=== PATIENT | male | born 1955 | race Caucasian/White ===

== ENCOUNTER 2018-01-21 05:52 | Inpatient (IN) ==
[2018-01-24 11:40] VITALS: BP 122/68
== END 2018-01-24 14:43 | disposition home or self-care (01) | DRG 707 ==
LOC: N.5E 05:52 → N.OR 05:52 → N.SDSINP 05:54 → N.5E 13:16
PROVIDERS: ADMIT Urology; ATTEND Urology

== ENCOUNTER 2018-02-04 20:25 | Inpatient (IN) ==
[2018-02-04] MEDS ORDERED: METOCLOPRAMIDE 10 MG/2 ML VIAL IV STA (23:04)
[2018-02-04] MEDS ORDERED: ONDANSETRON 4 MG/2 ML VIAL IV STA (23:04)
[2018-02-04] MEDS ORDERED: metroNIDAZOLE INJ 500 MG in PREMIX 1 EACH IV STA (23:04)
[2018-02-04] MEDS ORDERED: SODIUM CHLORIDE 0.9% 1,000 ML IV STA (23:04)
[2018-02-04] MEDS ORDERED: cefTRIAXone 1,000 MG in SODIUM CHLORIDE 0.9% 100 ML IV STA (23:04)
[2018-02-04] MEDS ORDERED: MEPERIDINE 25 MG/1 ML VIAL IV STA (23:27)
[2018-02-04 23:33] LABS: Basophils % 0.1 % (0.0-0.8); Hematocrit 32.4 VOL% (42.0-52.0); Hemoglobin 11.3 GM/DL (14.0-18.0); Immature Granulocytes % 1.4 %; Lymphocytes # 0.6 10*3/uL (1.4-4.0); Lymphocytes % 4.1 % (21.2-54.2); Mean Corpuscular HGB Conc 34.9 GM/DL (32-36); Mean Corpuscular Hemoglobin 31 PG (27-34); Mean Platelet Volume 9.4 FL (9.6-12.0); Monocytes # 1.5 10*3/uL (0.11-0.8); Monocytes % 10.3 % (1.7-12.7); Neutrophils # 12.3 10*3/uL (1.4-7.4); Neutrophils % 84.1 % (38.7-73.9); Platelet Count 124 T/CUMM (130-400); Red Blood Count 3.68 MC/CUMM (3.8-5.5); Red Cell Distribution Width 14.4 % (9.3-17.3); White Blood Count 14.6 T/CUMM (4-12)
[2018-02-04 23:54] LABS: Alanine Aminotransferase 45 U/L (16-61); Albumin 3.1 G/DL (3.4-5.0); Alkaline Phosphatase 63 U/L (45-117); Amylase 20 U/L (25-115); Aspartate Amino Transferase 37 U/L (0-37); Blood Urea Nitrogen 15 MG/DL (7-18); Glucose 92 MG/DL (74-106); Osmolality,Calculated 266.4 MOS/KG (273-304); Potassium 4.1 MMOL/L (3.5-5.1); Sodium 133 MMOL/L (136-145); Total Protein 6.5 G/DL (6.4-8.3)
[2018-02-04 23:56] LABS: Lactic Acid 2.4 MMOL/L (0.4-2.0)
[2018-02-05 00:27] LABS: Band Neutrophils 3 % (0-10); Lymphocytes 20 % (20-55); Platelet Estimate Decreased; Segmented Neutrophils 71 % (50-85); Total Cells Counted 100
[2018-02-05] MEDS ORDERED: MEPERIDINE 25 MG/1 ML VIAL IV STA ×2 (01:20→03:12)
[2018-02-05 01:34] LABS: Apearance,Urine CLEAR (Clear); Bilirubin,Urine Negative (Negative); Blood, Urine Small mg/dL (Negative); Glucose,Urine (UA) Negative (Negative); Hyaline Casts,Urine 1 /LPF (0-3); Ketones,Urine Negative (Negative); Mucus,Urine Occasional /LPF (Occasional); Nitrite,Urine Negative (Negative); Protein,Urine 30 MG/DL; RBC,Urine 8 /HPF (0-4); Squamous Epithelial Cell,Urine Occasional /HPF (0-10); Urine Color Amber (Yellow); Urine Specific Gravity 1.021 (1.001-1.035); WBC,Urine 14 /HPF (0-6)
[2018-02-05] MEDS ORDERED: SODIUM CHLORIDE 0.9% 1,000 ML IV STA (03:12)
[2018-02-05] MEDS ORDERED: PROMETHAZINE 25 MG/1 ML VIAL IM PRN (03:21)
[2018-02-05] MEDS: VANCOMYCIN INJ 1,750 MG in SODIUM CHLORIDE 0.9% 500 ML IV SCH ×2 (05:34→17:29)
[2018-02-05] MEDS: DEXTROSE 5% NACL 0.45% 1,000 ML IV SCH ×3 (05:34→22:30)
[2018-02-05] MEDS: ONDANSETRON 4 MG/2 ML VIAL IV PRN ×3 (07:49→18:03)
[2018-02-05] MEDS: MEPERIDINE 25 MG/1 ML VIAL IV PRN ×3 (07:51→18:03)
[2018-02-05] MEDS: cefTRIAXone 1,000 MG in SYRINGE 1 EACH IV SCH (22:32)
[2018-02-06] MEDS: VANCOMYCIN INJ 1,750 MG in SODIUM CHLORIDE 0.9% 500 ML IV SCH ×2 (04:05→16:05)
[2018-02-06] MEDS: MEPERIDINE 25 MG/1 ML VIAL IV PRN (07:47)
[2018-02-06] MEDS: ONDANSETRON 4 MG/2 ML VIAL IV PRN ×2 (07:54→20:10)
[2018-02-06 09:06] LABS: Eosinophils % 0.7 % (0.00-10.9); Hemoglobin 9.6 GM/DL (14.0-18.0)
[2018-02-06 09:20] LABS: Basophils % 0.3 % (0.0-0.8); Hematocrit 28.2 VOL% (42.0-52.0); Immature Granulocytes % 1.3 %; Immature Granulocytes Absolute 0.08 #; Lymphocytes # 0.4 10*3/uL (1.4-4.0); Lymphocytes % 6.2 % (21.2-54.2); Mean Corpuscular Hemoglobin 30 PG (27-34); Mean Platelet Volume 9.7 FL (9.6-12.0); Monocytes # 0.7 10*3/uL (0.11-0.8); Monocytes % 12.2 % (1.7-12.7); Neutrophils # 4.7 10*3/uL (1.4-7.4); Neutrophils % 79.3 % (38.7-73.9); Red Blood Count 3.17 MC/CUMM (3.8-5.5); Red Cell Distribution Width 14.2 % (9.3-17.3)
[2018-02-06 09:21] LABS: Platelet Count 98 T/CUMM (130-400)
[2018-02-06 09:31] LABS: Calcium 7.5 MG/DL (8.5-10.1); Osmolality,Calculated 274.7 MOS/KG (273-304); Potassium 3.5 MMOL/L (3.5-5.1)
[2018-02-06 09:33] LABS: Band Neutrophils 3 % (0-10); Eosinophils 2 % (0-10); Lymphocytes 6 % (20-55); Segmented Neutrophils 82 % (50-85); Total Cells Counted 100
[2018-02-06 09:34] LABS: Hypochromasia 1+; Microcytosis 1+; Platelet Estimate Decreased
[2018-02-06] MEDS: ACETAMINOPHEN 325 MG TABLET PO PRN (14:40)
[2018-02-06] MEDS: DEXTROSE 5% NACL 0.45% 1,000 ML IV SCH (14:48)
[2018-02-06] MEDS: cefTRIAXone 1,000 MG in SYRINGE 1 EACH IV SCH (21:59)
[2018-02-07] MEDS: VANCOMYCIN INJ 1,750 MG in SODIUM CHLORIDE 0.9% 500 ML IV SCH (04:09)
[2018-02-07] MEDS: ONDANSETRON 4 MG/2 ML VIAL IV PRN (12:36)
[2018-02-07 13:18] LABS: Basophils % 0.4 % (0.0-0.8); Eosinophils % 1.1 % (0.00-10.9); Hematocrit 26.9 VOL% (42.0-52.0); Immature Granulocytes % 0.4 %; Immature Granulocytes Absolute 0.01 #; Lymphocytes # 0.3 10*3/uL (1.4-4.0); Lymphocytes % 10.4 % (21.2-54.2); Mean Corpuscular HGB Conc 33.5 GM/DL (32-36); Mean Corpuscular Hemoglobin 30 PG (27-34); Monocytes # 0.5 10*3/uL (0.11-0.8); Monocytes % 19.1 % (1.7-12.7); Neutrophils # 1.9 10*3/uL (1.4-7.4); Neutrophils % 68.6 % (38.7-73.9); Platelet Count 98 T/CUMM (130-400); Red Blood Count 2.99 MC/CUMM (3.8-5.5); White Blood Count 2.8 T/CUMM (4-12)
[2018-02-07 13:39] LABS: Calcium 7.9 MG/DL (8.5-10.1); Osmolality,Calculated 277.5 MOS/KG (273-304); Potassium 3.1 MMOL/L (3.5-5.1)
[2018-02-07 13:48] LABS: Eosinophils 1 % (0-10); Lymphocytes 14 % (20-55); Segmented Neutrophils 71 % (50-85); Total Cells Counted 100
[2018-02-07 13:49] LABS: Platelet Estimate Decreased
[2018-02-07] MEDS: cefTRIAXone 2,000 MG in SYRINGE 1 EACH IV SCH (13:54)
[2018-02-07] MEDS ORDERED: traZODone 50 MG TABLET PO PRN (16:26)
[2018-02-07] MEDS ORDERED: ONDANSETRON 4 MG/2 ML VIAL IV PRN (16:38)
[2018-02-07] MEDS: ZIPRASIDONE 20 MG CAPSULE PO SCH (17:39)
[2018-02-07] MEDS: DULoxetine 30 MG CAPSULE PO SCH (17:47)
[2018-02-07] MEDS: carBAMazepine 200 MG TABLET PO SCH (17:52)
[2018-02-08] MEDS: ACETAMINOPHEN 325 MG TABLET PO PRN ×2 (00:28→13:19)
[2018-02-08 06:10] LABS: Basophils % 0.4 % (0.0-0.8); Eosinophils # 0.1 10*3/uL (0.0-0.87); Eosinophils % 2.2 % (0.00-10.9); Hematocrit 27.6 VOL% (42.0-52.0); Hemoglobin 9.4 GM/DL (14.0-18.0); Immature Granulocytes % 0.7 %; Immature Granulocytes Absolute 0.02 #; Lymphocytes # 0.5 10*3/uL (1.4-4.0); Lymphocytes % 16.6 % (21.2-54.2); Mean Corpuscular HGB Conc 34.1 GM/DL (32-36); Mean Corpuscular Hemoglobin 30 PG (27-34); Mean Corpuscular Volume 87.9 FL (87-102); Mean Platelet Volume 9.7 FL (9.6-12.0); Monocytes # 0.7 10*3/uL (0.11-0.8); Neutrophils # 1.5 10*3/uL (1.4-7.4); Neutrophils % 56.1 % (38.7-73.9); Platelet Count 101 T/CUMM (130-400); Red Blood Count 3.14 MC/CUMM (3.8-5.5); Red Cell Distribution Width 13.9 % (9.3-17.3); White Blood Count 2.7 T/CUMM (4-12)
[2018-02-08 06:32] LABS: Band Neutrophils 16 % (0-10); Eosinophils 2 % (0-10); Lymphocytes 14 % (20-55); Segmented Neutrophils 52 % (50-85); Total Cells Counted 100
[2018-02-08 06:33] LABS: Polychromasia 1+
[2018-02-08 06:34] LABS: Anisocytosis 1+
[2018-02-08 06:37] LABS: Osmolality,Calculated 274.5 MOS/KG (273-304); Potassium 3.3 MMOL/L (3.5-5.1)
[2018-02-08] MEDS: carBAMazepine 200 MG TABLET PO SCH (08:01)
[2018-02-08] MEDS: ZIPRASIDONE 20 MG CAPSULE PO SCH (08:01)
[2018-02-08] MEDS: DULoxetine 30 MG CAPSULE PO SCH (08:01)
[2018-02-08] MEDS: cefTRIAXone 2,000 MG in SYRINGE 1 EACH IV SCH (12:44)
[2018-02-08] MEDS ORDERED: POTASSIUM CHLORIDE 20 MEQ TABLET PO ONE (14:11)
[2018-02-08 16:04] VITALS: BP 144/77
== END 2018-02-08 17:11 | disposition home or self-care (01) | DRG 862 ==
LOC: N.ED 20:25 → N.EDINP 02-05 03:21 → N.TELEN 02-05 04:20 → N.5E 02-05 15:02
PROVIDERS: ADMIT Urology; ATTEND Urology

== ENCOUNTER 2019-03-29 09:20 | Inpatient (IN) ==
[2019-03-29 10:34] LABS: Basophils # 0.1 10*3/uL (0.0-0.2); Basophils % 0.6 % (0.0-0.8); Eosinophils % 0.2 % (0.00-10.9); Hematocrit 33.5 VOL% (42.0-52.0); Hemoglobin 12.3 GM/DL (14.0-18.0); Immature Granulocytes % 1.4 %; Immature Granulocytes Absolute 0.11 #; Lymphocytes # 1.2 10*3/uL (1.4-4.0); Mean Corpuscular HGB Conc 36.7 GM/DL (32-36); Mean Platelet Volume 9.7 FL (9.6-12.0); Monocytes % 19.7 % (1.7-12.7); Neutrophils % 63.1 % (38.7-73.9); Platelet Count 156 T/CUMM (130-400); Red Blood Count 3.85 MC/CUMM (3.8-5.5); Red Cell Distribution Width 12.7 % (9.3-17.3); White Blood Count 8.1 T/CUMM (4-12)
[2019-03-29 10:42] LABS: Apearance,Urine CLEAR (Clear); Bilirubin,Urine Negative (Negative); Blood, Urine Negative (Negative); Glucose,Urine (UA) Negative (Negative); Ketones,Urine Negative (Negative); Mucus,Urine Occasional /LPF (Occasional); Nitrite,Urine Negative (Negative); Protein,Urine Negative; RBC,Urine 1 /HPF (0-4); Urine Color Amber (Yellow); Urine Specific Gravity 1.024 (1.001-1.035); WBC,Urine 3 /HPF (0-6)
[2019-03-29 10:46] LABS: Barbiturates Screen,Urine Negative (Negative); Benzodiazepines Screen,Urine Negative (Negative); Cannabinoid Screen,Urine Negative (Negative); Opiate Screen,Urine Negative (Negative); Phencyclidine Screen,Urine Negative (Negative)
[2019-03-29 10:51] LABS: INR 1.1; PT Patient Result 12.3 SECS (9.6-12.2); Partial Thromboplastin Time 26.6 SECS (20.8-36.0)
[2019-03-29 11:04] LABS: Atypical Lymphocytes Few; Eosinophils 1 % (0-10); Lymphocytes 6 % (20-55); Platelet Estimate Adequate; Polychromasia Slight; Segmented Neutrophils 76 % (50-85); Total Cells Counted 100
[2019-03-29 11:05] LABS: Prolactin 12.8 NG/ML
[2019-03-29 11:11] LABS: Albumin 2.9 G/DL (3.4-5.0); Bilirubin,Total 1.9 MG/DL (0.2-1.0); Calcium 8.2 MG/DL (8.5-10.1); Osmolality,Calculated 248.8 MOS/KG (273-304); Thyroid Stimulating Hormone 0.578 uIU/ml (0.358-3.74); Total Protein 6.1 G/DL (6.4-8.3)
[2019-03-29] MEDS ORDERED: DIPH/TET/ACEL PERT BOOSTER VACCINE 0.5 ML VIAL IM ONE (11:41)
[2019-03-29] MEDS ORDERED: oxyCODONE/ACETAMINOPHEN 5-325 MG TABLET PO STA (11:41)
[2019-03-29 11:59] LABS: Hepatitis C Virus Ab Quant > 11.00 Index; Hepatitis C Virus Ab Result Positive (Negative)
[2019-03-29] MEDS ORDERED: ONDANSETRON 4 MG/2 ML VIAL IV PRN (12:00)
[2019-03-29] MEDS ORDERED: oxyCODONE/ACETAMINOPHEN 5-325 MG TABLET PO PRN (12:00)
[2019-03-29] MEDS ORDERED: NALOXONE 0.4 MG/ML VIAL IV PRN (12:00)
[2019-03-29] MEDS: SODIUM CHLORIDE 0.45% 1,000 ML IV SCH ×2 (12:30→20:57)
[2019-03-29] MEDS: IBUPROFEN 400 MG TABLET PO PRN (17:23)
[2019-03-29] MEDS: DOCUSATE SODIUM 100 MG CAPSULE PO SCH (20:57)
[2019-03-29] MEDS: ENOXAPARIN 40 MG/0.4 ML SYRINGE SUBCUT SCH (20:57)
[2019-03-29] MEDS ORDERED: IBUPROFEN 400 MG TABLET PO SCH (21:00)
[2019-03-29] MEDS ORDERED: traZODone 50 MG TABLET PO PRN (21:37)
[2019-03-29] MEDS: PROPRANOLOL 10 MG TABLET PO SCH (22:05)
[2019-03-29] MEDS: DULoxetine 30 MG CAPSULE PO SCH (22:05)
[2019-03-30] MEDS: SODIUM CHLORIDE 0.45% 1,000 ML IV SCH ×3 (04:47→21:25)
[2019-03-30] MEDS: IBUPROFEN 400 MG TABLET PO PRN ×3 (05:36→23:44)
[2019-03-30 06:07] LABS: Albumin 2.6 G/DL (3.4-5.0); Bilirubin,Direct 1.12 MG/DL (0.0-0.20); Bilirubin,Indirect 2.5 MG/DL (0.0-1.0); Bilirubin,Total 3.6 MG/DL (0.2-1.0); Total Protein 5.7 G/DL (6.4-8.3)
[2019-03-30 06:30] LABS: Risk Ratio 1.92; VLDL CHOLESTEROL 20.8 MG/DL
[2019-03-30] MEDS: DOCUSATE SODIUM 100 MG CAPSULE PO SCH ×2 (08:43→21:38)
[2019-03-30] MEDS: PANTOPRAZOLE 40 MG TABLET PO SCH (08:43)
[2019-03-30] MEDS: DULoxetine 30 MG CAPSULE PO SCH ×2 (08:43→21:38)
[2019-03-30] MEDS: LACTULOSE 20 GM/30 ML UDCUP PO SCH ×2 (14:55→21:37)
[2019-03-30] MEDS: PROPRANOLOL 10 MG TABLET PO SCH (18:07)
[2019-03-30] MEDS: ENOXAPARIN 40 MG/0.4 ML SYRINGE SUBCUT SCH (21:42)
[2019-03-31] MEDS: SODIUM CHLORIDE 0.45% 1,000 ML IV SCH ×3 (05:25→22:37)
[2019-03-31 06:29] LABS: Albumin 2.5 G/DL (3.4-5.0); Bilirubin,Total 3.6 MG/DL (0.2-1.0); Calcium 7.7 MG/DL (8.5-10.1); Osmolality,Calculated 249.6 MOS/KG (273-304); Total Protein 5.2 G/DL (6.4-8.3)
[2019-03-31] MEDS: DULoxetine 30 MG CAPSULE PO SCH ×2 (08:44→22:38)
[2019-03-31] MEDS: DOCUSATE SODIUM 100 MG CAPSULE PO SCH ×2 (08:44→22:38)
[2019-03-31] MEDS: LOSARTAN 25 MG TABLET PO SCH (08:45)
[2019-03-31] MEDS: carBAMazepine 200 MG TABLET PO SCH (08:45)
[2019-03-31] MEDS: IBUPROFEN 400 MG TABLET PO PRN ×2 (08:45→18:30)
[2019-03-31] MEDS: CHLORTHALIDONE 25 MG TABLET PO SCH (08:45)
[2019-03-31] MEDS: LACTULOSE 20 GM/30 ML UDCUP PO SCH ×2 (08:47→16:44)
[2019-03-31] MEDS: PROPRANOLOL 20 MG TABLET PO SCH (08:52)
[2019-03-31] MEDS: PANTOPRAZOLE 40 MG TABLET PO SCH (08:53)
[2019-03-31] MEDS ORDERED: PROPRANOLOL 20 MG TABLET PO SCH (21:00)
[2019-03-31] MEDS: ENOXAPARIN 40 MG/0.4 ML SYRINGE SUBCUT SCH (22:39)
[2019-04-01] MEDS: SODIUM CHLORIDE 0.45% 1,000 ML IV SCH ×2 (05:00→15:42)
[2019-04-01 05:32] LABS: Calcium 7.6 MG/DL (8.5-10.1); Osmolality,Calculated 251.5 MOS/KG (273-304)
[2019-04-01 08:08] LABS: Albumin 2.5 G/DL (3.4-5.0); Bilirubin,Direct 1.11 MG/DL (0.0-0.20); Bilirubin,Indirect 1.7 MG/DL (0.0-1.0); Bilirubin,Total 2.8 MG/DL (0.2-1.0); Total Protein 5.1 G/DL (6.4-8.3)
[2019-04-01] MEDS: carBAMazepine 200 MG TABLET PO SCH (09:57)
[2019-04-01] MEDS: DOCUSATE SODIUM 100 MG CAPSULE PO SCH (09:58)
[2019-04-01] MEDS: PANTOPRAZOLE 40 MG TABLET PO SCH (09:58)
[2019-04-01] MEDS: DULoxetine 30 MG CAPSULE PO SCH (09:58)
[2019-04-01] MEDS: LOSARTAN 25 MG TABLET PO SCH (09:58)
[2019-04-01] MEDS: CHLORTHALIDONE 25 MG TABLET PO SCH (09:59)
[2019-04-01] MEDS: PROPRANOLOL 20 MG TABLET PO SCH (09:59)
[2019-04-01] MEDS: LACTULOSE 20 GM/30 ML UDCUP PO SCH (10:00)
[2019-04-01 11:42] VITALS: BP 115/70
== END 2019-04-01 15:41 | DRG 917 ==
LOC: N.ED 09:20 → N.EDINP 12:00 → N.2E 12:54
PROVIDERS: ADMIT Family Medicine; ATTEND Family Medicine

== ENCOUNTER 2019-04-20 18:11 | Inpatient (IN) ==
[2019-04-20] MEDS ORDERED: SODIUM CHLORIDE 0.9% 1,000 ML IV STA (18:38)
[2019-04-20 19:00] LABS: Basophils % 0.8 % (0.0-0.8); Eosinophils # 0.1 10*3/uL (0.0-0.87); Eosinophils % 1.4 % (0.00-10.9); Hematocrit 31.3 VOL% (42.0-52.0); Hemoglobin 11.2 GM/DL (14.0-18.0); Immature Granulocytes % 0.6 %; Immature Granulocytes Absolute 0.03 #; Lymphocytes # 1.2 10*3/uL (1.4-4.0); Lymphocytes % 23.7 % (21.2-54.2); Mean Corpuscular HGB Conc 35.8 GM/DL (32-36); Mean Corpuscular Volume 89.9 FL (87-102); Mean Platelet Volume 9.5 FL (9.6-12.0); Monocytes % 21.5 % (1.7-12.7); Platelet Count 130 T/CUMM (130-400); Red Blood Count 3.48 MC/CUMM (3.8-5.5); Red Cell Distribution Width 12.9 % (9.3-17.3)
[2019-04-20 19:07] LABS: INR 1.1; PT Patient Result 12.4 SECS (9.6-12.2)
[2019-04-20 19:20] LABS: Alanine Aminotransferase 77 U/L (16-61); Albumin 2.7 G/DL (3.4-5.0); Alkaline Phosphatase 127 U/L (45-117); Aspartate Amino Transferase 91 U/L (0-37); Blood Urea Nitrogen 14 MG/DL (7-18); Calcium 7.7 MG/DL (8.5-10.1); Estimated Glom Filtration Rate 114 ML/MIN; Glucose 114 MG/DL (74-106); Osmolality,Calculated 259.9 MOS/KG (273-304); Total Protein 5.5 G/DL (6.4-8.3)
[2019-04-20 19:25] LABS: Eosinophils 2 % (0-10); Hypochromasia Slight; Lymphocytes 21 % (20-55); Platelet Estimate Adequate; Segmented Neutrophils 55 % (50-85); Total Cells Counted 100
[2019-04-20] MEDS ORDERED: LACTULOSE 20 GM/30 ML UDCUP PO PRN (19:34)
[2019-04-20] MEDS ORDERED: ONDANSETRON 4 MG/2 ML VIAL IV PRN (19:34)
[2019-04-20] MEDS ORDERED: CLINDAMYCIN INJ 50 ML IV ONE (19:58)
[2019-04-20] MEDS: CLINDAMYCIN INJ 600 MG in PREMIX 1 EACH IV SCH (20:07)
[2019-04-20] MEDS: SODIUM CHLORIDE 0.9% 1,000 ML IV SCH (20:07)
[2019-04-20 20:21] LABS: Apearance,Urine CLEAR (Clear); Bacteria,Urine Occasional /HPF (Few); Bilirubin,Urine Negative (Negative); Blood, Urine Negative (Negative); Glucose,Urine (UA) Negative (Negative); Hyaline Casts,Urine 137 /LPF (0-3); Ketones,Urine Negative (Negative); Mucus,Urine Many /LPF (Occasional); Nitrite,Urine Negative (Negative); Protein,Urine Negative; RBC,Urine 3 /HPF (0-4); Urine Color Amber (Yellow); Urine Specific Gravity 1.024 (1.001-1.035); WBC,Urine 2 /HPF (0-6)
[2019-04-20] MEDS: IBUPROFEN 600 MG TABLET PO PRN (23:04)
[2019-04-21] MEDS: CLINDAMYCIN INJ 600 MG in PREMIX 1 EACH IV SCH ×4 (01:41→21:27)
[2019-04-21] MEDS: SODIUM CHLORIDE 0.9% 1,000 ML IV SCH ×3 (05:09→23:11)
[2019-04-21 05:40] LABS: Basophils % 0.3 % (0.0-0.8); Eosinophils % 1.4 % (0.00-10.9); Hematocrit 28.9 VOL% (42.0-52.0); Hemoglobin 10.4 GM/DL (14.0-18.0); Immature Granulocytes Absolute 0.03 #; Lymphocytes # 0.8 10*3/uL (1.4-4.0); Lymphocytes % 27.7 % (21.2-54.2); Mean Corpuscular Volume 90.6 FL (87-102); Mean Platelet Volume 10.1 FL (9.6-12.0); Monocytes % 20.9 % (1.7-12.7); Neutrophils % 48.7 % (38.7-73.9); Platelet Count 103 T/CUMM (130-400); Red Blood Count 3.19 MC/CUMM (3.8-5.5); White Blood Count 2.9 T/CUMM (4-12)
[2019-04-21 06:07] LABS: Albumin 2.5 G/DL (3.4-5.0); Bilirubin,Total 1.8 MG/DL (0.2-1.0); Calcium 7.7 MG/DL (8.5-10.1); Osmolality,Calculated 258.9 MOS/KG (273-304); Total Protein 5.3 G/DL (6.4-8.3)
[2019-04-21 06:31] LABS: Anisocytosis 1+; Band Neutrophils 2 % (0-10); Eosinophils 3 % (0-10); Lymphocytes 24 % (20-55); Macrocytosis Slight; Platelet Estimate Adequate; Segmented Neutrophils 56 % (50-85); Smudge Cells Few; Total Cells Counted 100
[2019-04-21] MEDS: CHLORTHALIDONE 25 MG TABLET PO SCH (09:33)
[2019-04-21] MEDS: VENLAFAXINE XR 75 MG CAPSULE PO SCH (09:33)
[2019-04-21] MEDS: ARIPiprazole 5 MG TABLET PO SCH (09:33)
[2019-04-21] MEDS: LOSARTAN 50 MG TABLET PO SCH (09:33)
[2019-04-21] MEDS: PANTOPRAZOLE 40 MG TABLET PO SCH (09:33)
[2019-04-21] MEDS: carBAMazepine 200 MG TABLET PO SCH (09:33)
[2019-04-21] MEDS: PROPRANOLOL 20 MG TABLET PO SCH (09:33)
[2019-04-21] MEDS: LACTULOSE 20 GM/30 ML UDCUP PO SCH ×4 (09:35→21:29)
[2019-04-21] MEDS: IBUPROFEN 600 MG TABLET PO PRN (11:26)
[2019-04-21] MEDS ORDERED: TUBERCULIN SKIN TEST 0.1 ML SYRINGE INTRADERM ONE (15:00)
[2019-04-21] MEDS: LORazepam 2 MG/1 ML VIAL IV PRN ×2 (15:16→23:29)
[2019-04-22] MEDS ORDERED: HALOPERIDOL 5 MG/ML AMP IV PRN (00:17)
[2019-04-22] MEDS: CLINDAMYCIN INJ 600 MG in PREMIX 1 EACH IV SCH ×4 (02:52→21:00)
[2019-04-22] MEDS: LACTULOSE 20 GM/30 ML UDCUP PO SCH ×6 (02:52→22:03)
[2019-04-22] MEDS ORDERED: HALOPERIDOL 5 MG/ML AMP IM PRN (07:30)
[2019-04-22] MEDS: SODIUM CHLORIDE 0.9% 1,000 ML IV SCH ×2 (09:00→20:00)
[2019-04-22] MEDS: carBAMazepine 200 MG TABLET PO SCH (09:01)
[2019-04-22] MEDS: CHLORTHALIDONE 25 MG TABLET PO SCH (09:01)
[2019-04-22] MEDS: PROPRANOLOL 20 MG TABLET PO SCH (09:01)
[2019-04-22] MEDS: PANTOPRAZOLE 40 MG TABLET PO SCH (09:01)
[2019-04-22] MEDS: ARIPiprazole 5 MG TABLET PO SCH (09:02)
[2019-04-22] MEDS: VENLAFAXINE XR 75 MG CAPSULE PO SCH (09:03)
[2019-04-22] MEDS: LOSARTAN 50 MG TABLET PO SCH (09:03)
[2019-04-22] MEDS: LORazepam 2 MG/1 ML VIAL IV PRN (14:56)
[2019-04-23] MEDS: CLINDAMYCIN INJ 600 MG in PREMIX 1 EACH IV SCH ×4 (00:39→21:29)
[2019-04-23] MEDS: LACTULOSE 20 GM/30 ML UDCUP PO SCH ×6 (02:38→21:24)
[2019-04-23] MEDS: SODIUM CHLORIDE 0.9% 1,000 ML IV SCH ×3 (04:00→20:00)
[2019-04-23 05:18] LABS: Basophils % 0.4 % (0.0-0.8); Eosinophils % 1.2 % (0.00-10.9); Hematocrit 30.9 VOL% (42.0-52.0); Immature Granulocytes % 0.8 %; Immature Granulocytes Absolute 0.02 #; Lymphocytes # 0.6 10*3/uL (1.4-4.0); Lymphocytes % 23.9 % (21.2-54.2); Mean Corpuscular HGB Conc 35.6 GM/DL (32-36); Mean Corpuscular Volume 89.3 FL (87-102); Monocytes % 24.3 % (1.7-12.7); Neutrophils % 49.4 % (38.7-73.9); Red Blood Count 3.46 MC/CUMM (3.8-5.5); Red Cell Distribution Width 13.1 % (9.3-17.3); White Blood Count 2.4 T/CUMM (4-12)
[2019-04-23 05:19] LABS: Platelet Count 96 T/CUMM (130-400)
[2019-04-23 05:44] LABS: Albumin 2.6 G/DL (3.4-5.0); Bilirubin,Total 2.4 MG/DL (0.2-1.0); Calcium 8.7 MG/DL (8.5-10.1); Osmolality,Calculated 263.4 MOS/KG (273-304); Total Protein 5.7 G/DL (6.4-8.3)
[2019-04-23 05:50] LABS: Lymphocytes 21 % (20-55); Platelet Estimate Decreased; Segmented Neutrophils 55 % (50-85); Total Cells Counted 100
[2019-04-23] MEDS ORDERED: MIDAZOLAM 2 MG/2 ML VIAL ONE (06:47)
[2019-04-23] MEDS: CHLORTHALIDONE 25 MG TABLET PO SCH (09:41)
[2019-04-23] MEDS: LOSARTAN 50 MG TABLET PO SCH (09:46)
[2019-04-23] MEDS: PANTOPRAZOLE 40 MG TABLET PO SCH (09:46)
[2019-04-23] MEDS: PROPRANOLOL 20 MG TABLET PO SCH (09:47)
[2019-04-23] MEDS: carBAMazepine 200 MG TABLET PO SCH (10:00)
[2019-04-23] MEDS: IBUPROFEN 600 MG TABLET PO PRN (13:59)
[2019-04-23] MEDS: MUPIROCIN 2% OINT 22 GM TUBE TOP SCH ×2 (14:01→21:34)
[2019-04-24] MEDS: LACTULOSE 20 GM/30 ML UDCUP PO SCH ×3 (02:50→09:40)
[2019-04-24] MEDS: CLINDAMYCIN INJ 600 MG in PREMIX 1 EACH IV SCH ×3 (02:52→09:41)
[2019-04-24] MEDS: SODIUM CHLORIDE 0.9% 1,000 ML IV SCH ×2 (02:54→04:00)
[2019-04-24 08:30] VITALS: BP 139/72
[2019-04-24] MEDS ORDERED: SODIUM HYPOCHLORITE 0.25% IRRIG 473 ML BOTTLE TOP SCH (09:00)
[2019-04-24] MEDS: IBUPROFEN 600 MG TABLET PO PRN (09:39)
[2019-04-24] MEDS: PROPRANOLOL 20 MG TABLET PO SCH (09:39)
[2019-04-24] MEDS: carBAMazepine 200 MG TABLET PO SCH (09:40)
[2019-04-24] MEDS: CHLORTHALIDONE 25 MG TABLET PO SCH (09:40)
[2019-04-24] MEDS: PANTOPRAZOLE 40 MG TABLET PO SCH (09:40)
[2019-04-24] MEDS: MUPIROCIN 2% OINT 22 GM TUBE TOP SCH (09:41)
[2019-04-24] MEDS: LOSARTAN 50 MG TABLET PO SCH (09:41)
[2019-04-24] MEDS ORDERED: CLINDAMYCIN 300 MG CAPSULE PO SCH (10:30)
== END 2019-04-24 11:32 | DRG 884 ==
LOC: N.ED 18:11 → N.EDINP 19:33 → N.2E 20:48
PROVIDERS: ADMIT Family Medicine; ATTEND Family Medicine

== ENCOUNTER 2019-08-21 18:58 | Inpatient (IN) ==
[2019-08-21 20:14] LABS: Basophils % 0.1 % (0.0-0.8); Hematocrit 20.3 VOL% (42.0-52.0); Hemoglobin 7.4 GM/DL (14.0-18.0); Immature Granulocytes % 1.9 %; Lymphocytes % 7.1 % (21.2-54.2); Mean Corpuscular HGB Conc 36.5 GM/DL (32-36); Mean Corpuscular Volume 81.5 FL (87-102); Mean Platelet Volume 9.9 FL (9.6-12.0); Monocytes % 14.3 % (1.7-12.7); Neutrophils % 76.6 % (38.7-73.9); Platelet Count 164 T/CUMM (130-400); Red Blood Count 2.49 MC/CUMM (3.8-5.5); Red Cell Distribution Width 13.9 % (9.3-17.3); White Blood Count 27.3 T/CUMM (4-12)
[2019-08-21 20:15] LABS: Immature Granulocytes Absolute 0.52 #; Lymphocytes # 1.9 10*3/uL (1.4-4.0)
[2019-08-21] MEDS ORDERED: MORPHINE 4 MG/1 ML VIAL IV STA (20:19)
[2019-08-21] MEDS ORDERED: ONDANSETRON 4 MG/2 ML VIAL IV ONE (20:19)
[2019-08-21 20:24] LABS: INR 1.5; PT Patient Result 16.2 SECS (9.6-12.2); Partial Thromboplastin Time 26.1 SECS (20.8-36.0)
[2019-08-21] MEDS ORDERED: SODIUM CHLORIDE 0.9% 1,000 ML IV STA ×2 (20:35→20:40)
[2019-08-21 20:36] LABS: Albumin 2.6 G/DL (3.4-5.0); Anisocytosis Slight; Band Neutrophils 4 % (0-10); Bilirubin,Total 4.8 MG/DL (0.2-1.0); Calcium 7.4 MG/DL (8.5-10.1); Lymphocytes 7 % (20-55); Microcytosis Slight; Osmolality,Calculated 234.5 MOS/KG (273-304); Platelet Estimate Normal; Reactive Lymphocytes Slight; Segmented Neutrophils 82 % (50-85); Total Cells Counted 100; Total Protein 5.2 G/DL (6.4-8.3)
[2019-08-21] MEDS ORDERED: PANTOPRAZOLE INJ 80 MG in SODIUM CHLORIDE 0.9% 100 ML IV ONE (20:42)
[2019-08-21] MEDS ORDERED: MORPHINE 4 MG/1 ML VIAL IV PRN (20:42)
[2019-08-21] MEDS ORDERED: ONDANSETRON 4 MG/2 ML VIAL IV PRN (20:42)
[2019-08-21] MEDS ORDERED: DEXTROSE 50% 25 GM/50 ML VIAL IV STA (20:50)
[2019-08-21] MEDS ORDERED: SODIUM CHLORIDE 0.9% 1,000 ML IV SCH (21:00)
[2019-08-21] MEDS ORDERED: PIPERACILLIN/TAZOBACTAM 3,375 MG in SODIUM CHLORIDE 0.9% 100 ML IV ONE (21:53)
[2019-08-21] MEDS: PANTOPRAZOLE INJ 200 MG in SODIUM CHLORIDE 0.9% 250 ML IV SCH (22:19)
[2019-08-21] MEDS ORDERED: DEXTROSE 10% 250 ML BAG IV PRN (22:21)
[2019-08-21 22:37] LABS: Calcium 7.1 MG/DL (8.5-10.1)
[2019-08-21] MEDS ORDERED: SODIUM CHLORIDE 0.9% 1,000 ML IV PRN (22:45)
[2019-08-21] MEDS ORDERED: LORazepam 2 MG/1 ML VIAL IV PRN (23:16)
[2019-08-21] MEDS ORDERED: SODIUM POLYSTYRENE SULFATE 15 GM/60 ML BOTTLE PO ONE (23:16)
[2019-08-21 23:37] LABS: Bilirubin,Direct 1.08 MG/DL (0.0-0.20); Bilirubin,Indirect 3.3 MG/DL (0.0-1.0)
[2019-08-21 23:44] LABS: Bilirubin,Total 4.4 MG/DL (0.2-1.0)
[2019-08-21] MEDS ORDERED: FUROSEMIDE 40 MG/4 ML VIAL IV ONE (23:45)
[2019-08-21] MEDS ORDERED: ACETAMINOPHEN 500 MG TABLET PO ONE (23:45)
[2019-08-21 23:53] LABS: Apearance,Urine CLEAR (Clear); Bilirubin,Urine Negative (Negative); Blood, Urine Small mg/dL (Negative); Glucose,Urine (UA) Negative (Negative); Granular Casts,Urine 1 /LPF (0-1); Hyaline Casts,Urine 30 /LPF (0-3); Ketones,Urine 5 mg/dL (Negative); Mucus,Urine Occasional /LPF (Occasional); Nitrite,Urine Negative (Negative); Protein,Urine Negative; RBC,Urine 5 /HPF (0-4); Urine Color Amber (Yellow); Urine Specific Gravity 1.018 (1.001-1.035); Urine Urobilinogen < 2.0 EU/DL (0.2-1.0); WBC,Urine 1 /HPF (0-6)
[2019-08-22] MEDS: SODIUM CHLORIDE IV SCH ×3 (00:07→17:25)
[2019-08-22] MEDS: STERILE WATER IV SCH ×3 (00:07→17:25)
[2019-08-22] MEDS: PIPERACILLIN/TAZOBACTAM 3,375 MG in SODIUM CHLORIDE 0.9% 100 ML IV SCH ×4 (00:22→22:50)
[2019-08-22] MEDS: MORPHINE 4 MG/1 ML VIAL IV PRN ×5 (01:07→23:09)
[2019-08-22 04:00] LABS: Albumin 2.5 G/DL (3.4-5.0); Bilirubin,Total 5.4 MG/DL (0.2-1.0); Calcium 6.8 MG/DL (8.5-10.1); Osmolality,Calculated 246.9 MOS/KG (273-304); Total Protein 4.3 G/DL (6.4-8.3)
[2019-08-22 05:53] LABS: Basophils % 0.1 % (0.0-0.8); Eosinophils % 0.1 % (0.00-10.9); Hematocrit 22.3 VOL% (42.0-52.0); Hemoglobin 7.9 GM/DL (14.0-18.0); Immature Granulocytes % 1.2 %; Immature Granulocytes Absolute 0.21 #; Lymphocytes # 1.6 10*3/uL (1.4-4.0); Lymphocytes % 9.7 % (21.2-54.2); Mean Corpuscular HGB Conc 35.4 GM/DL (32-36); Mean Corpuscular Volume 85.4 FL (87-102); Mean Platelet Volume 10.4 FL (9.6-12.0); Monocytes % 14.9 % (1.7-12.7); Platelet Count 109 T/CUMM (130-400); Red Blood Count 2.61 MC/CUMM (3.8-5.5); Red Cell Distribution Width 15.1 % (9.3-17.3); White Blood Count 16.8 T/CUMM (4-12)
[2019-08-22] MEDS: LOSARTAN 25 MG TABLET PO SCH (08:14)
[2019-08-22] MEDS: ESCITALOPRAM 10 MG TABLET PO SCH (08:22)
[2019-08-22] MEDS ORDERED: CHLORTHALIDONE 25 MG TABLET PO SCH (09:00)
[2019-08-22] MEDS ORDERED: FUROSEMIDE 20 MG/2 ML VIAL IV ONE (13:14)
[2019-08-22 14:13] LABS: Calcium 6.7 MG/DL (8.5-10.1); Osmolality,Calculated 260.2 MOS/KG (273-304)
[2019-08-22] MEDS ORDERED: SODIUM CHLORIDE 3% INJ 500 ML IV SCH (16:00)
[2019-08-22 18:24] LABS: Calcium 6.4 MG/DL (8.5-10.1); Osmolality,Calculated 268.6 MOS/KG (273-304)
[2019-08-22] MEDS: SODIUM CHLORIDE 0.9% 1,000 ML IV SCH (19:30)
[2019-08-22 19:59] LABS: Calcium 6.5 MG/DL (8.5-10.1); Osmolality,Calculated 270.5 MOS/KG (273-304)
[2019-08-22] MEDS: PANTOPRAZOLE INJ 200 MG in SODIUM CHLORIDE 0.9% 250 ML IV SCH (22:49)
[2019-08-23 00:43] LABS: Calcium 6.5 MG/DL (8.5-10.1); Osmolality,Calculated 268.6 MOS/KG (273-304)
[2019-08-23] MEDS: MORPHINE 4 MG/1 ML VIAL IV PRN ×9 (02:42→23:43)
[2019-08-23] MEDS: SODIUM CHLORIDE 0.9% 1,000 ML IV SCH ×5 (02:46→22:16)
[2019-08-23 03:36] LABS: Basophils % 0.2 % (0.0-0.8); Eosinophils # 0.1 10*3/uL (0.0-0.87); Eosinophils % 0.5 % (0.00-10.9); Hematocrit 27.6 VOL% (42.0-52.0); Hemoglobin 9.4 GM/DL (14.0-18.0); Immature Granulocytes % 1.6 %; Immature Granulocytes Absolute 0.16 #; Lymphocytes # 1.1 10*3/uL (1.4-4.0); Lymphocytes % 10.8 % (21.2-54.2); Mean Corpuscular HGB Conc 34.1 GM/DL (32-36); Mean Corpuscular Volume 85.2 FL (87-102); Mean Platelet Volume 10.1 FL (9.6-12.0); Monocytes % 17.8 % (1.7-12.7); Neutrophils % 69.1 % (38.7-73.9); Red Blood Count 3.24 MC/CUMM (3.8-5.5); Red Cell Distribution Width 15.5 % (9.3-17.3); White Blood Count 10.2 T/CUMM (4-12)
[2019-08-23 03:41] LABS: INR 1.4; PT Patient Result 15.4 SECS (9.6-12.2)
[2019-08-23 03:42] LABS: Platelet Count 92 T/CUMM (130-400)
[2019-08-23 04:07] LABS: Albumin 2.5 G/DL (3.4-5.0); Bilirubin,Total 3.9 MG/DL (0.2-1.0); Calcium 6.8 MG/DL (8.5-10.1); Osmolality,Calculated 268.6 MOS/KG (273-304); Total Protein 4.6 G/DL (6.4-8.3)
[2019-08-23 04:19] LABS: Eosinophils 1 % (0-10); Lymphocytes 10 % (20-55); Metamyelocytes 1 %; Segmented Neutrophils 77 % (50-85); Total Cells Counted 100
[2019-08-23 04:20] LABS: Platelet Estimate Decreased
[2019-08-23 04:21] LABS: Acanthocytes Few; Anisocytosis 1+; Hypochromasia Slight; Macrocytosis 1+; Ovalocytes 1+; Polychromasia Few
[2019-08-23] MEDS: SODIUM CHLORIDE 3% INJ 500 ML IV PRN ×4 (05:37→23:22)
[2019-08-23] MEDS: PIPERACILLIN/TAZOBACTAM 3,375 MG in SODIUM CHLORIDE 0.9% 100 ML IV SCH ×3 (06:40→23:54)
[2019-08-23] MEDS: ESCITALOPRAM 10 MG TABLET PO SCH (08:05)
[2019-08-23] MEDS: LOSARTAN 25 MG TABLET PO SCH (08:05)
[2019-08-23] MEDS: ENOXAPARIN 30 MG/0.3 ML SYRINGE SUBCUT SCH (08:10)
[2019-08-23] MEDS: methylPREDNISolone SOD SUC 40 MG/1 ML VIAL IV SCH ×2 (09:09→20:34)
[2019-08-23] MEDS: PANTOPRAZOLE INJ 200 MG in SODIUM CHLORIDE 0.9% 250 ML IV SCH ×2 (22:07→23:54)
[2019-08-24] MEDS: MORPHINE 4 MG/1 ML VIAL IV PRN ×10 (01:48→21:27)
[2019-08-24] MEDS: SODIUM CHLORIDE 0.9% 1,000 ML IV SCH ×4 (05:12→20:06)
[2019-08-24] MEDS: SODIUM CHLORIDE 3% INJ 500 ML IV PRN ×2 (05:14→08:22)
[2019-08-24] MEDS: PIPERACILLIN/TAZOBACTAM 3,375 MG in SODIUM CHLORIDE 0.9% 100 ML IV SCH ×3 (07:13→22:38)
[2019-08-24 08:03] LABS: Albumin 2.4 G/DL (3.4-5.0); Bilirubin,Direct 1.65 MG/DL (0.0-0.20); Bilirubin,Indirect 1.5 MG/DL (0.0-1.0); Bilirubin,Total 3.1 MG/DL (0.2-1.0); Total Protein 4.6 G/DL (6.4-8.3)
[2019-08-24 08:07] LABS: Osmolality,Calculated 286.9 MOS/KG (273-304)
[2019-08-24] MEDS: methylPREDNISolone SOD SUC 40 MG/1 ML VIAL IV SCH ×2 (08:11→20:06)
[2019-08-24] MEDS: LOSARTAN 25 MG TABLET PO SCH (12:34)
[2019-08-24] MEDS: ESCITALOPRAM 10 MG TABLET PO SCH (12:34)
[2019-08-24] MEDS: ENOXAPARIN 30 MG/0.3 ML SYRINGE SUBCUT SCH (12:38)
[2019-08-25] MEDS: MORPHINE 4 MG/1 ML VIAL IV PRN ×5 (00:04→17:38)
[2019-08-25] MEDS: SODIUM CHLORIDE 0.9% 1,000 ML IV SCH ×4 (02:56→18:31)
[2019-08-25 05:08] LABS: Basophils % 0.2 % (0.0-0.8); Hematocrit 28.9 VOL% (42.0-52.0); Hemoglobin 9.4 GM/DL (14.0-18.0); Immature Granulocytes Absolute 0.26 #; Lymphocytes # 0.6 10*3/uL (1.4-4.0); Lymphocytes % 6.3 % (21.2-54.2); Mean Corpuscular HGB Conc 32.5 GM/DL (32-36); Mean Corpuscular Volume 89.8 FL (87-102); Mean Platelet Volume 9.5 FL (9.6-12.0); Monocytes % 7.3 % (1.7-12.7); NRBC # 0.02 10*3/uL; Neutrophils % 83.2 % (38.7-73.9); Platelet Count 125 T/CUMM (130-400); Red Blood Count 3.22 MC/CUMM (3.8-5.5); Red Cell Distribution Width 17.1 % (9.3-17.3); White Blood Count 8.8 T/CUMM (4-12)
[2019-08-25 05:35] LABS: Albumin 2.5 G/DL (3.4-5.0); Bilirubin,Direct 1.53 MG/DL (0.0-0.20); Bilirubin,Indirect 1.2 MG/DL (0.0-1.0); Bilirubin,Total 2.7 MG/DL (0.2-1.0); Calcium 7.3 MG/DL (8.5-10.1); Osmolality,Calculated 292.5 MOS/KG (273-304); Total Protein 5.2 G/DL (6.4-8.3)
[2019-08-25] MEDS: PIPERACILLIN/TAZOBACTAM 3,375 MG in SODIUM CHLORIDE 0.9% 100 ML IV SCH ×3 (06:22→23:39)
[2019-08-25] MEDS ORDERED: ceFAZolin 2,000 MG in SYRINGE 1 EACH IV ONE (06:30)
[2019-08-25] MEDS: methylPREDNISolone SOD SUC 40 MG/1 ML VIAL IV SCH ×2 (08:10→20:13)
[2019-08-25] MEDS: PANTOPRAZOLE 40 MG VIAL IV SCH ×2 (08:15→20:13)
[2019-08-25] MEDS ORDERED: TRANEXAMIC ACID 1,000 MG/10 ML VIAL ONE ×2 (10:39→12:39)
[2019-08-25] MEDS ORDERED: BACITRACIN OINT 0.9 GM PACK TOP ONE (10:40)
[2019-08-25] MEDS ORDERED: ceFAZolin 1,000 MG VIAL ONE (11:36)
[2019-08-25] MEDS ORDERED: SUGAMMADEX 200 MG/2 ML VIAL IV ONE (13:05)
[2019-08-25] MEDS ORDERED: ROPIVACAINE 0.5% 30 ML VIAL ONE (13:21)
[2019-08-25] MEDS ORDERED: LIDOCAINE 2% 5 ML VIAL ONE (13:21)
[2019-08-25] MEDS ORDERED: SEVOFLURANE 1 UNIT/15 MINUTE INH ONE (13:21)
[2019-08-25] MEDS ORDERED: propofoL 200 MG/20 ML VIAL IV ONE (13:21)
[2019-08-25] MEDS ORDERED: PHENYLEPHRINE 1 MG/10 ML SYRINGE IV ONE (13:22)
[2019-08-25] MEDS ORDERED: MIDAZOLAM 2 MG/2 ML VIAL ONE (13:22)
[2019-08-25] MEDS ORDERED: ROCURONIUM 100 MG/10 ML VIAL IV ONE (13:22)
[2019-08-25] MEDS ORDERED: ONDANSETRON 4 MG/2 ML VIAL ONE (13:22)
[2019-08-25] MEDS ORDERED: fentaNYL 100 MCG/2 ML VIAL ONE (13:22)
[2019-08-25] MEDS ORDERED: MAGNESIUM HYDROXIDE SUSP 30 ML UDCUP PO PRN (13:37)
[2019-08-25] MEDS: MENTHOL/ZINC OXIDE OINT 71 GM JAR TOP SCH ×2 (14:51→20:14)
[2019-08-25] MEDS: ESCITALOPRAM 10 MG TABLET PO SCH (15:15)
[2019-08-25] MEDS: DOCUSATE SODIUM 100 MG CAPSULE PO SCH (20:14)
[2019-08-26] MEDS: SODIUM CHLORIDE 0.9% 1,000 ML IV SCH ×5 (01:13→20:42)
[2019-08-26 05:04] LABS: Hematocrit 21.9 VOL% (42.0-52.0); Hemoglobin 7.1 GM/DL (14.0-18.0); Immature Granulocytes % 1.7 %; Immature Granulocytes Absolute 0.07 #; Lymphocytes # 0.3 10*3/uL (1.4-4.0); Lymphocytes % 7.9 % (21.2-54.2); Mean Corpuscular HGB Conc 32.4 GM/DL (32-36); Mean Corpuscular Volume 91.3 FL (87-102); Mean Platelet Volume 9.3 FL (9.6-12.0); Monocytes % 11.6 % (1.7-12.7); Neutrophils % 78.8 % (38.7-73.9); Red Cell Distribution Width 17.4 % (9.3-17.3); White Blood Count 4.1 T/CUMM (4-12)
[2019-08-26 05:06] LABS: Platelet Count 80 T/CUMM (130-400)
[2019-08-26 05:13] LABS: Calcium 7.3 MG/DL (8.5-10.1)
[2019-08-26] MEDS: PIPERACILLIN/TAZOBACTAM 3,375 MG in SODIUM CHLORIDE 0.9% 100 ML IV SCH ×3 (06:03→23:44)
[2019-08-26] MEDS ORDERED: FUROSEMIDE 40 MG/4 ML VIAL IV PRN (06:26)
[2019-08-26] MEDS ORDERED: SODIUM CHLORIDE 0.9% 1,000 ML IV PRN ×2 (06:26→07:10)
[2019-08-26 08:28] LABS: INR 1.4; PT Patient Result 14.7 SECS (9.6-12.2)
[2019-08-26] MEDS: ESCITALOPRAM 10 MG TABLET PO SCH (09:26)
[2019-08-26] MEDS: DOCUSATE SODIUM 100 MG CAPSULE PO SCH ×2 (09:28→20:24)
[2019-08-26] MEDS: methylPREDNISolone SOD SUC 40 MG/1 ML VIAL IV SCH ×2 (09:29→20:26)
[2019-08-26] MEDS: PANTOPRAZOLE 40 MG VIAL IV SCH ×2 (09:35→20:23)
[2019-08-26] MEDS: MENTHOL/ZINC OXIDE OINT 71 GM JAR TOP SCH ×2 (09:41→20:32)
[2019-08-26 18:38] LABS: Hematocrit 25.3 VOL% (42.0-52.0); Hemoglobin 8.4 GM/DL (14.0-18.0)
[2019-08-26] MEDS: LACTULOSE 20 GM/30 ML UDCUP PO SCH (20:24)
[2019-08-27] MEDS: SODIUM CHLORIDE 0.9% 1,000 ML IV SCH ×3 (01:45→06:37)
[2019-08-27 04:43] LABS: Hematocrit 24.5 VOL% (42.0-52.0); Hemoglobin 8.1 GM/DL (14.0-18.0); Immature Granulocytes % 1.5 %; Immature Granulocytes Absolute 0.04 #; Lymphocytes # 0.3 10*3/uL (1.4-4.0); Lymphocytes % 9.5 % (21.2-54.2); Mean Corpuscular HGB Conc 33.1 GM/DL (32-36); Mean Corpuscular Volume 87.8 FL (87-102); Mean Platelet Volume 8.9 FL (9.6-12.0); Monocytes % 14.5 % (1.7-12.7); NRBC # 0.02 10*3/uL; Neutrophils % 74.5 % (38.7-73.9); Platelet Count 58 T/CUMM (130-400); Red Blood Count 2.79 MC/CUMM (3.8-5.5); Red Cell Distribution Width 16.1 % (9.3-17.3); White Blood Count 2.8 T/CUMM (4-12)
[2019-08-27 05:18] LABS: Lymphocytes 6 % (20-55); Nucleated Red Blood Cells 2 (0-5); Segmented Neutrophils 84 % (50-85); Total Cells Counted 100
[2019-08-27 05:19] LABS: Anisocytosis 1+; Hypochromasia 1+; Microcytosis 1+; Platelet Estimate Decreased
[2019-08-27] MEDS: PIPERACILLIN/TAZOBACTAM 3,375 MG in SODIUM CHLORIDE 0.9% 100 ML IV SCH ×2 (06:30→23:18)
[2019-08-27 06:49] LABS: Albumin 1.9 G/DL (3.4-5.0); Bilirubin,Direct 1.69 MG/DL (0.0-0.20); Bilirubin,Indirect 1.5 MG/DL (0.0-1.0); Bilirubin,Total 3.2 MG/DL (0.2-1.0)
[2019-08-27] MEDS ORDERED: SODIUM CHLORIDE 0.9% 1,000 ML IV PRN (07:09)
[2019-08-27] MEDS: methylPREDNISolone SOD SUC 40 MG/1 ML VIAL IV SCH ×2 (08:17→20:47)
[2019-08-27] MEDS: ESCITALOPRAM 10 MG TABLET PO SCH (08:25)
[2019-08-27] MEDS: LACTULOSE 20 GM/30 ML UDCUP PO SCH ×2 (08:25→20:47)
[2019-08-27] MEDS: DOCUSATE SODIUM 100 MG CAPSULE PO SCH ×2 (08:25→20:47)
[2019-08-27] MEDS: MENTHOL/ZINC OXIDE OINT 71 GM JAR TOP SCH ×2 (08:25→20:47)
[2019-08-27] MEDS: PANTOPRAZOLE 40 MG VIAL IV SCH ×2 (08:26→20:47)
[2019-08-27] MEDS: MORPHINE 4 MG/1 ML VIAL IV PRN (19:29)
[2019-08-28] MEDS: PIPERACILLIN/TAZOBACTAM 3,375 MG in SODIUM CHLORIDE 0.9% 100 ML IV SCH ×4 (02:01→22:54)
[2019-08-28 05:36] LABS: Hematocrit 31.2 VOL% (42.0-52.0); Hemoglobin 10.4 GM/DL (14.0-18.0); Immature Granulocytes % 2.4 %; Immature Granulocytes Absolute 0.09 #; Lymphocytes # 0.4 10*3/uL (1.4-4.0); Lymphocytes % 11.3 % (21.2-54.2); Mean Corpuscular HGB Conc 33.3 GM/DL (32-36); Mean Corpuscular Volume 87.6 FL (87-102); Monocytes % 11.3 % (1.7-12.7); Platelet Count 63 T/CUMM (130-400); Red Blood Count 3.56 MC/CUMM (3.8-5.5); Red Cell Distribution Width 16.3 % (9.3-17.3); White Blood Count 3.8 T/CUMM (4-12)
[2019-08-28 06:03] LABS: Hypochromasia 1+; Lymphocytes 8 % (20-55); Microcytosis 1+; Segmented Neutrophils 81 % (50-85); Total Cells Counted 100
[2019-08-28 06:04] LABS: Platelet Estimate Decreased; Polychromasia Slight
[2019-08-28 06:05] LABS: Calcium 7.6 MG/DL (8.5-10.1)
[2019-08-28] MEDS: MORPHINE 4 MG/1 ML VIAL IV PRN ×3 (08:30→19:37)
[2019-08-28] MEDS: ESCITALOPRAM 10 MG TABLET PO SCH (09:15)
[2019-08-28] MEDS: DOCUSATE SODIUM 100 MG CAPSULE PO SCH ×2 (09:16→20:58)
[2019-08-28] MEDS: MENTHOL/ZINC OXIDE OINT 71 GM JAR TOP SCH ×2 (09:16→20:55)
[2019-08-28] MEDS: PANTOPRAZOLE 40 MG VIAL IV SCH ×2 (09:16→21:01)
[2019-08-28] MEDS: methylPREDNISolone SOD SUC 40 MG/1 ML VIAL IV SCH ×2 (09:16→19:38)
[2019-08-28] MEDS: SOFOSBUVIR VELPATASVIR PO SCH (09:17)
[2019-08-28] MEDS: LACTULOSE 20 GM/30 ML UDCUP PO SCH ×2 (09:17→20:59)
[2019-08-29] MEDS: MORPHINE 4 MG/1 ML VIAL IV PRN ×5 (03:30→23:22)
[2019-08-29 05:12] LABS: Calcium 7.9 MG/DL (8.5-10.1); Osmolality,Calculated 283.1 MOS/KG (273-304)
[2019-08-29] MEDS: PIPERACILLIN/TAZOBACTAM 3,375 MG in SODIUM CHLORIDE 0.9% 100 ML IV SCH (06:27)
[2019-08-29] MEDS: PANTOPRAZOLE 40 MG VIAL IV SCH ×2 (09:49→21:00)
[2019-08-29] MEDS: methylPREDNISolone SOD SUC 40 MG/1 ML VIAL IV SCH ×2 (09:50→20:59)
[2019-08-29] MEDS: ESCITALOPRAM 10 MG TABLET PO SCH (09:50)
[2019-08-29] MEDS: DOCUSATE SODIUM 100 MG CAPSULE PO SCH ×2 (09:51→20:58)
[2019-08-29] MEDS: LACTULOSE 20 GM/30 ML UDCUP PO SCH ×2 (09:51→20:45)
[2019-08-29] MEDS: SOFOSBUVIR VELPATASVIR PO SCH (09:51)
[2019-08-29] MEDS: MENTHOL/ZINC OXIDE OINT 71 GM JAR TOP SCH ×2 (09:51→21:01)
[2019-08-29] MEDS ORDERED: MAGNESIUM SULF RIDER 2 GM in PREMIX 1 EACH IV PRN (15:52)
[2019-08-29] MEDS ORDERED: GLUCAGON 1 MG VIAL IM PRN (15:52)
[2019-08-29] MEDS ORDERED: POTASSIUM CHLORIDE RIDER 10 MEQ in PREMIX 1 EACH IV PRN (15:52)
[2019-08-29] MEDS ORDERED: MAGNESIUM SULF RIDER 4 GM in PREMIX 1 EACH IV PRN (15:52)
[2019-08-29] MEDS ORDERED: DEXTROSE 10% 250 ML BAG IV PRN (15:52)
[2019-08-29] MEDS: INSULIN LISPRO 100 UNIT/ML SUBCUT SCH ×2 (16:40→20:46)
[2019-08-30] MEDS: MORPHINE 4 MG/1 ML VIAL IV PRN ×5 (03:08→23:41)
[2019-08-30 06:24] LABS: Basophils % 0.1 % (0.0-0.8); Hematocrit 33.6 VOL% (42.0-52.0); Immature Granulocytes % 1.5 %; Immature Granulocytes Absolute 0.11 #; Lymphocytes # 0.6 10*3/uL (1.4-4.0); Lymphocytes % 7.8 % (21.2-54.2); Mean Corpuscular HGB Conc 32.7 GM/DL (32-36); Mean Corpuscular Volume 89.6 FL (87-102); Mean Platelet Volume 9.8 FL (9.6-12.0); Monocytes % 7.5 % (1.7-12.7); Neutrophils % 83.1 % (38.7-73.9); Platelet Count 68 T/CUMM (130-400); Red Blood Count 3.75 MC/CUMM (3.8-5.5); Red Cell Distribution Width 17.1 % (9.3-17.3); White Blood Count 7.2 T/CUMM (4-12)
[2019-08-30 06:26] LABS: Calcium 8.1 MG/DL (8.5-10.1)
[2019-08-30 07:41] LABS: Band Neutrophils 2 % (0-10); Lymphocytes 5 % (20-55); Segmented Neutrophils 86 % (50-85); Total Cells Counted 100
[2019-08-30 07:42] LABS: Anisocytosis 1+; Macrocytosis Slight; Platelet Estimate Decreased
[2019-08-30] MEDS: INSULIN LISPRO 100 UNIT/ML SUBCUT SCH ×4 (08:10→20:31)
[2019-08-30] MEDS: methylPREDNISolone SOD SUC 40 MG/1 ML VIAL IV SCH ×2 (09:39→20:15)
[2019-08-30] MEDS: MENTHOL/ZINC OXIDE OINT 71 GM JAR TOP SCH ×2 (09:39→20:13)
[2019-08-30] MEDS: LACTULOSE 20 GM/30 ML UDCUP PO SCH ×2 (09:39→20:42)
[2019-08-30] MEDS: ESCITALOPRAM 10 MG TABLET PO SCH (09:39)
[2019-08-30] MEDS: DOCUSATE SODIUM 100 MG CAPSULE PO SCH ×2 (09:39→20:12)
[2019-08-30] MEDS: PANTOPRAZOLE 40 MG VIAL IV SCH ×2 (09:40→20:16)
[2019-08-30] MEDS: SOFOSBUVIR VELPATASVIR PO SCH (09:40)
[2019-08-31] MEDS: MORPHINE 4 MG/1 ML VIAL IV PRN ×4 (03:22→18:16)
[2019-08-31 05:24] LABS: Calcium 8.1 MG/DL (8.5-10.1)
[2019-08-31] MEDS: INSULIN LISPRO 100 UNIT/ML SUBCUT SCH ×4 (08:20→20:59)
[2019-08-31] MEDS: SOFOSBUVIR VELPATASVIR PO SCH (08:21)
[2019-08-31] MEDS: DOCUSATE SODIUM 100 MG CAPSULE PO SCH ×2 (08:22→20:53)
[2019-08-31] MEDS: LACTULOSE 20 GM/30 ML UDCUP PO SCH ×2 (08:22→20:54)
[2019-08-31] MEDS: methylPREDNISolone SOD SUC 40 MG/1 ML VIAL IV SCH ×2 (08:22→20:53)
[2019-08-31] MEDS: ESCITALOPRAM 10 MG TABLET PO SCH (08:23)
[2019-08-31] MEDS: PANTOPRAZOLE 40 MG VIAL IV SCH ×2 (08:25→20:58)
[2019-08-31] MEDS: MENTHOL/ZINC OXIDE OINT 71 GM JAR TOP SCH ×2 (08:25→20:53)
[2019-09-01 06:04] LABS: Basophils % 0.1 % (0.0-0.8); Hematocrit 34.7 VOL% (42.0-52.0); Hemoglobin 11.5 GM/DL (14.0-18.0); Immature Granulocytes Absolute 0.08 #; Lymphocytes # 0.7 10*3/uL (1.4-4.0); Lymphocytes % 8.4 % (21.2-54.2); Mean Corpuscular HGB Conc 33.1 GM/DL (32-36); Mean Corpuscular Volume 89.4 FL (87-102); Mean Platelet Volume 10.1 FL (9.6-12.0); Monocytes % 7.2 % (1.7-12.7); Neutrophils % 83.3 % (38.7-73.9); Platelet Count 77 T/CUMM (130-400); Red Blood Count 3.88 MC/CUMM (3.8-5.5); Red Cell Distribution Width 17.2 % (9.3-17.3); White Blood Count 8.4 T/CUMM (4-12)
[2019-09-01 06:20] LABS: Hypochromasia 1+; Microcytosis 1+
[2019-09-01 06:21] LABS: Anisocytosis 1+; Ovalocytes Few; Platelet Estimate Decreased
[2019-09-01 06:33] LABS: Calcium 8.5 MG/DL (8.5-10.1); Osmolality,Calculated 280.1 MOS/KG (273-304)
[2019-09-01] MEDS: PANTOPRAZOLE 40 MG VIAL IV SCH ×2 (08:24→21:15)
[2019-09-01] MEDS: ESCITALOPRAM 10 MG TABLET PO SCH (08:29)
[2019-09-01] MEDS: methylPREDNISolone SOD SUC 40 MG/1 ML VIAL IV SCH ×2 (08:29→21:18)
[2019-09-01] MEDS: DOCUSATE SODIUM 100 MG CAPSULE PO SCH ×2 (08:30→21:15)
[2019-09-01] MEDS: SOFOSBUVIR VELPATASVIR PO SCH (08:30)
[2019-09-01] MEDS: LACTULOSE 20 GM/30 ML UDCUP PO SCH ×2 (08:30→21:15)
[2019-09-01] MEDS: MENTHOL/ZINC OXIDE OINT 71 GM JAR TOP SCH ×2 (08:30→21:18)
[2019-09-01] MEDS: INSULIN LISPRO 100 UNIT/ML SUBCUT SCH ×4 (08:31→21:18)
[2019-09-02 04:43] LABS: Osmolality,Calculated 283.8 MOS/KG (273-304)
[2019-09-02] MEDS ORDERED: ceFAZolin 2,000 MG in PREMIX 1 EACH IV ONE (07:08)
[2019-09-02] MEDS ORDERED: SODIUM CHLORIDE 0.9% IV ONE (07:09)
[2019-09-02] MEDS ORDERED: GENTAMICIN IV ONE (07:09)
[2019-09-02] MEDS ORDERED: VANCOMYCIN INJ 1,250 MG in SODIUM CHLORIDE 0.9% 250 ML IV SCH (08:00)
[2019-09-02] MEDS: INSULIN LISPRO 100 UNIT/ML SUBCUT SCH ×4 (08:22→21:57)
[2019-09-02] MEDS: LACTULOSE 20 GM/30 ML UDCUP PO SCH ×2 (08:23→21:53)
[2019-09-02] MEDS: DOCUSATE SODIUM 100 MG CAPSULE PO SCH ×2 (08:23→21:52)
[2019-09-02] MEDS: SOFOSBUVIR VELPATASVIR PO SCH (08:23)
[2019-09-02] MEDS ORDERED: ALBUTEROL/IPRATROPIUM 3 ML NEB RESP TX ONE (08:42)
[2019-09-02] MEDS: MORPHINE 4 MG/1 ML VIAL IV PRN ×3 (08:51→21:52)
[2019-09-02] MEDS: PANTOPRAZOLE 40 MG VIAL IV SCH ×2 (08:51→21:52)
[2019-09-02] MEDS: ESCITALOPRAM 10 MG TABLET PO SCH (08:52)
[2019-09-02] MEDS: MENTHOL/ZINC OXIDE OINT 71 GM JAR TOP SCH ×2 (08:52→21:57)
[2019-09-02] MEDS ORDERED: VANCOMYCIN INJ 2,250 MG in SODIUM CHLORIDE 0.9% 500 ML IV ONE (09:00)
[2019-09-02 09:02] LABS: INR 1.3; PT Patient Result 14.3 SECS (9.6-12.2)
[2019-09-02] MEDS ORDERED: fentaNYL 100 MCG/2 ML VIAL ONE (14:47)
[2019-09-02] MEDS ORDERED: SEVOFLURANE 1 UNIT/15 MINUTE INH ONE (14:48)
[2019-09-02] MEDS ORDERED: PHENYLEPHRINE 1 MG/10 ML SYRINGE IV ONE (14:48)
[2019-09-02] MEDS ORDERED: propofoL 200 MG/20 ML VIAL IV ONE (14:48)
[2019-09-02] MEDS ORDERED: MORPHINE 10 MG/1 ML VIAL ONE (14:57)
[2019-09-02] MEDS: MORPHINE 10 MG/1 ML VIAL IV PRN ×2 (14:58→15:05)
[2019-09-02] MEDS: ceFAZolin 2,000 MG in PREMIX 1 EACH IV SCH (21:57)
[2019-09-02] MEDS: VANCOMYCIN INJ 1,500 MG in SODIUM CHLORIDE 0.9% 500 ML IV SCH (22:27)
[2019-09-03] MEDS: MORPHINE 4 MG/1 ML VIAL IV PRN ×5 (03:03→19:39)
[2019-09-03 05:55] LABS: Basophils % 0.1 % (0.0-0.8); Hematocrit 34.5 VOL% (42.0-52.0); Hemoglobin 10.9 GM/DL (14.0-18.0); Immature Granulocytes % 0.8 %; Immature Granulocytes Absolute 0.12 #; Lymphocytes # 0.9 10*3/uL (1.4-4.0); Lymphocytes % 6.4 % (21.2-54.2); Mean Corpuscular HGB Conc 31.6 GM/DL (32-36); Mean Corpuscular Volume 93.2 FL (87-102); Mean Platelet Volume 9.9 FL (9.6-12.0); Monocytes % 10.4 % (1.7-12.7); Neutrophils % 82.3 % (38.7-73.9); Platelet Count 82 T/CUMM (130-400); Red Cell Distribution Width 17.9 % (9.3-17.3); White Blood Count 14.4 T/CUMM (4-12)
[2019-09-03 06:15] LABS: Hypochromasia 1+; Lymphocytes 7 % (20-55); Ovalocytes Slight; Platelet Estimate Decreased; Segmented Neutrophils 83 % (50-85); Total Cells Counted 100
[2019-09-03 06:16] LABS: Microcytosis 1+
[2019-09-03 06:23] LABS: Calcium 8.2 MG/DL (8.5-10.1)
[2019-09-03] MEDS: INSULIN LISPRO 100 UNIT/ML SUBCUT SCH ×4 (07:00→21:16)
[2019-09-03] MEDS ORDERED: ceFAZolin 2,000 MG in PREMIX 1 EACH IV SCH (09:00)
[2019-09-03] MEDS: ceFAZolin 2,000 MG in PREMIX 1 EACH IV SCH (09:13)
[2019-09-03] MEDS: PANTOPRAZOLE 40 MG VIAL IV SCH ×2 (09:22→21:15)
[2019-09-03] MEDS: MENTHOL/ZINC OXIDE OINT 71 GM JAR TOP SCH ×2 (09:22→21:16)
[2019-09-03] MEDS: FUROSEMIDE 40 MG/4 ML VIAL IV SCH (09:22)
[2019-09-03] MEDS: LACTULOSE 20 GM/30 ML UDCUP PO SCH ×2 (09:23→21:16)
[2019-09-03] MEDS: DOCUSATE SODIUM 100 MG CAPSULE PO SCH ×2 (09:23→21:16)
[2019-09-03] MEDS: ESCITALOPRAM 10 MG TABLET PO SCH (09:23)
[2019-09-03] MEDS: SOFOSBUVIR VELPATASVIR PO SCH (09:23)
[2019-09-03] MEDS: VANCOMYCIN INJ 1,500 MG in SODIUM CHLORIDE 0.9% 500 ML IV SCH ×2 (10:00→21:18)
[2019-09-04] MEDS: MORPHINE 4 MG/1 ML VIAL IV PRN ×4 (00:47→16:10)
[2019-09-04] MEDS: MEROPENEM 500 MG in SODIUM CHLORIDE 0.9% 100 ML IV SCH ×2 (06:13→16:17)
[2019-09-04 06:40] LABS: Albumin 2.3 G/DL (3.4-5.0); Bilirubin,Direct 1.4 MG/DL (0.0-0.20); Bilirubin,Indirect 3.5 MG/DL (0.0-1.0); Bilirubin,Total 4.9 MG/DL (0.2-1.0); Total Protein 4.9 G/DL (6.4-8.3)
[2019-09-04 06:45] LABS: Apearance,Urine Slightly Hazy (Clear); Bacteria,Urine Occasional /HPF (Few); Bilirubin,Urine Negative (Negative); Blood, Urine Moderate mg/dL (Negative); Glucose,Urine (UA) Negative (Negative); Ketones,Urine Negative (Negative); Mucus,Urine Occasional /LPF (Occasional); Nitrite,Urine Negative (Negative); Protein,Urine Negative; RBC,Urine 5 /HPF (0-4); Urine Color Amber (Yellow); Urine Specific Gravity 1.031 (1.001-1.035); WBC,Urine 7 /HPF (0-6)
[2019-09-04] MEDS: INSULIN LISPRO 100 UNIT/ML SUBCUT SCH ×4 (08:58→20:39)
[2019-09-04] MEDS: LACTULOSE 20 GM/30 ML UDCUP PO SCH ×2 (09:49→20:39)
[2019-09-04] MEDS: ESCITALOPRAM 10 MG TABLET PO SCH (09:49)
[2019-09-04] MEDS: DOCUSATE SODIUM 100 MG CAPSULE PO SCH ×2 (09:49→20:38)
[2019-09-04] MEDS: PANTOPRAZOLE 40 MG VIAL IV SCH ×2 (09:53→20:39)
[2019-09-04] MEDS: FUROSEMIDE 40 MG/4 ML VIAL IV SCH (09:57)
[2019-09-04] MEDS: VANCOMYCIN INJ 1,500 MG in SODIUM CHLORIDE 0.9% 500 ML IV SCH ×2 (10:03→20:43)
[2019-09-04] MEDS: MENTHOL/ZINC OXIDE OINT 71 GM JAR TOP SCH ×2 (11:51→20:39)
[2019-09-04] MEDS: SOFOSBUVIR VELPATASVIR PO SCH (11:53)
[2019-09-05] MEDS: MORPHINE 4 MG/1 ML VIAL IV PRN ×2 (00:38→12:45)
[2019-09-05] MEDS: MEROPENEM 500 MG in SODIUM CHLORIDE 0.9% 100 ML IV SCH ×4 (00:43→19:45)
[2019-09-05] MEDS: INSULIN LISPRO 100 UNIT/ML SUBCUT SCH ×4 (08:12→20:56)
[2019-09-05] MEDS: VANCOMYCIN INJ 1,500 MG in SODIUM CHLORIDE 0.9% 500 ML IV SCH ×2 (10:03→20:55)
[2019-09-05] MEDS: PANTOPRAZOLE 40 MG VIAL IV SCH ×2 (10:04→20:52)
[2019-09-05] MEDS: LACTULOSE 20 GM/30 ML UDCUP PO SCH ×3 (10:04→20:51)
[2019-09-05] MEDS: ESCITALOPRAM 10 MG TABLET PO SCH (10:04)
[2019-09-05] MEDS: DOCUSATE SODIUM 100 MG CAPSULE PO SCH ×3 (10:04→20:51)
[2019-09-05] MEDS: FUROSEMIDE 40 MG/4 ML VIAL IV SCH ×3 (10:04→12:28)
[2019-09-05] MEDS: SOFOSBUVIR VELPATASVIR PO SCH (10:05)
[2019-09-05] MEDS: MENTHOL/ZINC OXIDE OINT 71 GM JAR TOP SCH ×2 (10:05→20:56)
[2019-09-06] MEDS: MEROPENEM 500 MG in SODIUM CHLORIDE 0.9% 100 ML IV SCH ×4 (01:44→19:47)
[2019-09-06 07:17] LABS: Basophils % 0.2 % (0.0-0.8); Eosinophils # 0.1 10*3/uL (0.0-0.87); Hematocrit 31.9 VOL% (42.0-52.0); Hemoglobin 10.7 GM/DL (14.0-18.0); Immature Granulocytes % 0.8 %; Immature Granulocytes Absolute 0.04 #; Lymphocytes # 0.6 10*3/uL (1.4-4.0); Lymphocytes % 10.9 % (21.2-54.2); Mean Corpuscular HGB Conc 33.5 GM/DL (32-36); Mean Corpuscular Volume 89.6 FL (87-102); Mean Platelet Volume 10.2 FL (9.6-12.0); Monocytes % 16.6 % (1.7-12.7); Neutrophils % 70.5 % (38.7-73.9); Red Blood Count 3.56 MC/CUMM (3.8-5.5); Red Cell Distribution Width 17.3 % (9.3-17.3); White Blood Count 5.2 T/CUMM (4-12)
[2019-09-06 07:18] LABS: Platelet Count 80 T/CUMM (130-400)
[2019-09-06 07:43] LABS: Albumin 2.1 G/DL (3.4-5.0); Bilirubin,Total 3.3 MG/DL (0.2-1.0); Calcium 8.1 MG/DL (8.5-10.1); Osmolality,Calculated 277.1 MOS/KG (273-304); Total Protein 4.7 G/DL (6.4-8.3)
[2019-09-06 07:50] LABS: Thyroid Stimulating Hormone 1.61 uIU/ml (0.358-3.74)
[2019-09-06 07:57] LABS: Eosinophils 2 % (0-10); Lymphocytes 8 % (20-55); Segmented Neutrophils 80 % (50-85); Total Cells Counted 100
[2019-09-06 07:58] LABS: Hypochromasia 1+; Microcytosis 1+; Platelet Estimate Decreased
[2019-09-06] MEDS: INSULIN LISPRO 100 UNIT/ML SUBCUT SCH ×4 (08:27→21:47)
[2019-09-06] MEDS: VANCOMYCIN INJ 1,500 MG in SODIUM CHLORIDE 0.9% 500 ML IV SCH ×2 (10:16→23:27)
[2019-09-06] MEDS: DOCUSATE SODIUM 100 MG CAPSULE PO SCH ×2 (10:17→21:45)
[2019-09-06] MEDS: PANTOPRAZOLE 40 MG VIAL IV SCH ×2 (10:17→21:46)
[2019-09-06] MEDS: MENTHOL/ZINC OXIDE OINT 71 GM JAR TOP SCH ×2 (10:18→21:46)
[2019-09-06] MEDS: LACTULOSE 20 GM/30 ML UDCUP PO SCH ×2 (10:18→21:45)
[2019-09-06] MEDS: SOFOSBUVIR VELPATASVIR PO SCH (10:19)
[2019-09-06] MEDS: ESCITALOPRAM 10 MG TABLET PO SCH (10:19)
[2019-09-06] MEDS: FUROSEMIDE 40 MG/4 ML VIAL IV SCH (10:19)
[2019-09-06] MEDS ORDERED: MAGNESIUM SULF RIDER 2 GM in PREMIX 1 EACH IV PRN (16:23)
[2019-09-06] MEDS: POTASSIUM CHLORIDE RIDER 10 MEQ in PREMIX 1 EACH IV SCH ×2 (16:39→17:49)
[2019-09-07] MEDS: MEROPENEM 500 MG in SODIUM CHLORIDE 0.9% 100 ML IV SCH ×4 (02:29→23:25)
[2019-09-07] MEDS: VANCOMYCIN INJ 1,500 MG in SODIUM CHLORIDE 0.9% 500 ML IV SCH (06:03)
[2019-09-07 06:23] LABS: Basophils % 0.2 % (0.0-0.8); Eosinophils # 0.1 10*3/uL (0.0-0.87); Hematocrit 31.9 VOL% (42.0-52.0); Hemoglobin 10.7 GM/DL (14.0-18.0); Immature Granulocytes % 0.8 %; Immature Granulocytes Absolute 0.05 #; Lymphocytes # 0.8 10*3/uL (1.4-4.0); Lymphocytes % 12.5 % (21.2-54.2); Mean Corpuscular HGB Conc 33.5 GM/DL (32-36); Mean Corpuscular Volume 89.9 FL (87-102); Mean Platelet Volume 9.8 FL (9.6-12.0); Monocytes % 14.5 % (1.7-12.7); Red Blood Count 3.55 MC/CUMM (3.8-5.5); Red Cell Distribution Width 17.4 % (9.3-17.3)
[2019-09-07 06:28] LABS: Platelet Count 79 T/CUMM (130-400)
[2019-09-07 06:44] LABS: Hypochromasia 1+; Platelet Estimate Decreased
[2019-09-07 06:45] LABS: Microcytosis 1+
[2019-09-07 06:49] LABS: Albumin 2.2 G/DL (3.4-5.0); Bilirubin,Total 3.5 MG/DL (0.2-1.0); Calcium 8.4 MG/DL (8.5-10.1); Osmolality,Calculated 271.4 MOS/KG (273-304); Total Protein 4.9 G/DL (6.4-8.3)
[2019-09-07] MEDS: INSULIN LISPRO 100 UNIT/ML SUBCUT SCH ×4 (07:58→21:15)
[2019-09-07] MEDS: LACTULOSE 20 GM/30 ML UDCUP PO SCH ×2 (08:22→21:14)
[2019-09-07] MEDS: DOCUSATE SODIUM 100 MG CAPSULE PO SCH ×2 (08:22→21:15)
[2019-09-07] MEDS: PANTOPRAZOLE 40 MG VIAL IV SCH ×2 (08:23→21:15)
[2019-09-07] MEDS: FUROSEMIDE 40 MG/4 ML VIAL IV SCH (08:25)
[2019-09-07] MEDS: ESCITALOPRAM 10 MG TABLET PO SCH (08:27)
[2019-09-07] MEDS: MENTHOL/ZINC OXIDE OINT 71 GM JAR TOP SCH ×2 (08:28→21:14)
[2019-09-07] MEDS: SOFOSBUVIR VELPATASVIR PO SCH (08:28)
[2019-09-08] MEDS: VANCOMYCIN INJ 1,500 MG in SODIUM CHLORIDE 0.9% 500 ML IV SCH ×2 (00:30→17:02)
[2019-09-08] MEDS: MEROPENEM 500 MG in SODIUM CHLORIDE 0.9% 100 ML IV SCH ×3 (05:50→19:41)
[2019-09-08] MEDS: POTASSIUM CHLORIDE 20 MEQ TABLET PO SCH ×3 (05:51→20:45)
[2019-09-08 06:36] LABS: Basophils % 0.2 % (0.0-0.8); Eosinophils # 0.1 10*3/uL (0.0-0.87); Eosinophils % 1.6 % (0.00-10.9); Hematocrit 32.3 VOL% (42.0-52.0); Hemoglobin 10.3 GM/DL (14.0-18.0); Immature Granulocytes % 0.9 %; Immature Granulocytes Absolute 0.04 #; Lymphocytes # 0.8 10*3/uL (1.4-4.0); Lymphocytes % 17.5 % (21.2-54.2); Mean Corpuscular HGB Conc 31.9 GM/DL (32-36); Mean Corpuscular Volume 91.8 FL (87-102); Mean Platelet Volume 9.6 FL (9.6-12.0); Monocytes % 16.3 % (1.7-12.7); Neutrophils % 63.5 % (38.7-73.9); Platelet Count 75 T/CUMM (130-400); Red Blood Count 3.52 MC/CUMM (3.8-5.5); Red Cell Distribution Width 17.6 % (9.3-17.3); White Blood Count 4.4 T/CUMM (4-12)
[2019-09-08 06:57] LABS: Bilirubin,Total 2.7 MG/DL (0.2-1.0); Calcium 7.9 MG/DL (8.5-10.1); Total Protein 4.7 G/DL (6.4-8.3)
[2019-09-08 07:07] LABS: Eosinophils 2 % (0-10); Hypochromasia 1+; Lymphocytes 11 % (20-55); Ovalocytes Slight; Platelet Estimate Decreased; Segmented Neutrophils 78 % (50-85); Total Cells Counted 100
[2019-09-08 07:08] LABS: Microcytosis 1+
[2019-09-08] MEDS: INSULIN LISPRO 100 UNIT/ML SUBCUT SCH ×4 (09:08→21:22)
[2019-09-08] MEDS: MENTHOL/ZINC OXIDE OINT 71 GM JAR TOP SCH ×2 (09:08→20:46)
[2019-09-08] MEDS: SOFOSBUVIR VELPATASVIR PO SCH (09:09)
[2019-09-08] MEDS: ESCITALOPRAM 10 MG TABLET PO SCH (09:16)
[2019-09-08] MEDS: DOCUSATE SODIUM 100 MG CAPSULE PO SCH ×2 (09:17→20:46)
[2019-09-08] MEDS: LACTULOSE 20 GM/30 ML UDCUP PO SCH ×2 (09:19→20:46)
[2019-09-08] MEDS: PANTOPRAZOLE 40 MG VIAL IV SCH ×2 (09:19→20:46)
[2019-09-08] MEDS: FUROSEMIDE 40 MG/4 ML VIAL IV SCH (13:39)
[2019-09-09] MEDS: MEROPENEM 500 MG in SODIUM CHLORIDE 0.9% 100 ML IV SCH ×4 (01:45→19:04)
[2019-09-09 05:08] LABS: Basophils % 0.5 % (0.0-0.8); Eosinophils # 0.1 10*3/uL (0.0-0.87); Eosinophils % 1.8 % (0.00-10.9); Hematocrit 31.9 VOL% (42.0-52.0); Hemoglobin 10.6 GM/DL (14.0-18.0); Immature Granulocytes % 0.7 %; Immature Granulocytes Absolute 0.03 #; Lymphocytes # 0.8 10*3/uL (1.4-4.0); Lymphocytes % 18.5 % (21.2-54.2); Mean Corpuscular HGB Conc 33.2 GM/DL (32-36); Mean Corpuscular Volume 90.4 FL (87-102); Mean Platelet Volume 9.6 FL (9.6-12.0); Monocytes % 13.9 % (1.7-12.7); Neutrophils % 64.6 % (38.7-73.9); Red Blood Count 3.53 MC/CUMM (3.8-5.5); Red Cell Distribution Width 17.6 % (9.3-17.3); White Blood Count 4.4 T/CUMM (4-12)
[2019-09-09 05:16] LABS: Platelet Count 75 T/CUMM (130-400)
[2019-09-09 05:37] LABS: Bilirubin,Total 3.1 MG/DL (0.2-1.0); Calcium 7.9 MG/DL (8.5-10.1); Osmolality,Calculated 278.8 MOS/KG (273-304)
[2019-09-09 05:46] LABS: Anisocytosis 1+; Hypochromasia 1+; Microcytosis 1+; Platelet Estimate Decreased
[2019-09-09] MEDS: INSULIN LISPRO 100 UNIT/ML SUBCUT SCH ×4 (07:38→21:07)
[2019-09-09] MEDS: PANTOPRAZOLE 40 MG VIAL IV SCH ×2 (08:22→20:56)
[2019-09-09] MEDS: FUROSEMIDE 40 MG/4 ML VIAL IV SCH (08:27)
[2019-09-09] MEDS: ESCITALOPRAM 10 MG TABLET PO SCH (08:29)
[2019-09-09] MEDS: DOCUSATE SODIUM 100 MG CAPSULE PO SCH ×2 (08:30→20:54)
[2019-09-09] MEDS: SOFOSBUVIR VELPATASVIR PO SCH (08:30)
[2019-09-09] MEDS: POTASSIUM CHLORIDE 20 MEQ TABLET PO SCH ×2 (08:30→20:54)
[2019-09-09] MEDS: LACTULOSE 20 GM/30 ML UDCUP PO SCH ×2 (08:30→20:54)
[2019-09-09] MEDS: MENTHOL/ZINC OXIDE OINT 71 GM JAR TOP SCH ×2 (08:30→20:54)
[2019-09-09] MEDS: VANCOMYCIN INJ 1,500 MG in SODIUM CHLORIDE 0.9% 500 ML IV SCH (12:30)
[2019-09-10] MEDS: MEROPENEM 500 MG in SODIUM CHLORIDE 0.9% 100 ML IV SCH ×3 (01:08→19:24)
[2019-09-10] MEDS: VANCOMYCIN INJ 1,500 MG in SODIUM CHLORIDE 0.9% 500 ML IV SCH (05:48)
[2019-09-10 06:10] LABS: Basophils % 0.6 % (0.0-0.8); Eosinophils # 0.1 10*3/uL (0.0-0.87); Hematocrit 32.6 VOL% (42.0-52.0); Hemoglobin 10.7 GM/DL (14.0-18.0); Immature Granulocytes % 0.8 %; Immature Granulocytes Absolute 0.04 #; Lymphocytes # 1.1 10*3/uL (1.4-4.0); Lymphocytes % 20.5 % (21.2-54.2); Mean Corpuscular HGB Conc 32.8 GM/DL (32-36); Mean Corpuscular Volume 90.1 FL (87-102); Mean Platelet Volume 9.9 FL (9.6-12.0); Monocytes % 13.3 % (1.7-12.7); Neutrophils % 62.8 % (38.7-73.9); Platelet Count 74 T/CUMM (130-400); Red Blood Count 3.62 MC/CUMM (3.8-5.5); Red Cell Distribution Width 17.5 % (9.3-17.3); White Blood Count 5.1 T/CUMM (4-12)
[2019-09-10 06:38] LABS: Eosinophils 4 % (0-10); Hypochromasia 1+; Lymphocytes 11 % (20-55); Microcytosis 1+; Ovalocytes Slight; Platelet Estimate Decreased; Segmented Neutrophils 74 % (50-85); Total Cells Counted 100
[2019-09-10] MEDS: POTASSIUM CHLORIDE 20 MEQ TABLET PO SCH ×2 (10:12→22:25)
[2019-09-10] MEDS: SOFOSBUVIR VELPATASVIR PO SCH (10:15)
[2019-09-10] MEDS: LACTULOSE 20 GM/30 ML UDCUP PO SCH ×2 (10:15→22:19)
[2019-09-10] MEDS: DOCUSATE SODIUM 100 MG CAPSULE PO SCH ×2 (10:15→22:19)
[2019-09-10] MEDS: INSULIN LISPRO 100 UNIT/ML SUBCUT SCH ×4 (10:15→22:20)
[2019-09-10] MEDS: ESCITALOPRAM 10 MG TABLET PO SCH (10:16)
[2019-09-10] MEDS: FUROSEMIDE 40 MG/4 ML VIAL IV SCH (11:36)
[2019-09-10] MEDS: PANTOPRAZOLE 40 MG VIAL IV SCH ×2 (11:39→22:25)
[2019-09-10] MEDS: MENTHOL/ZINC OXIDE OINT 71 GM JAR TOP SCH ×2 (15:05→22:25)
[2019-09-10] MEDS ORDERED: MAGNESIUM SULF RIDER 2 GM in PREMIX 1 EACH IV ONE (19:15)
[2019-09-10] MEDS: DESITIN 4OZ/NYSTATIN 15 GRAM MIXTURE PASTE TOP SCH (22:25)
[2019-09-10] MEDS: ALBUMIN 25% 25 GM in PREMIX 1 EACH IV SCH (23:22)
[2019-09-11] MEDS: MEROPENEM 500 MG in SODIUM CHLORIDE 0.9% 100 ML IV SCH ×4 (00:50→17:16)
[2019-09-11] MEDS: VANCOMYCIN INJ 1,500 MG in SODIUM CHLORIDE 0.9% 500 ML IV SCH ×2 (00:58→18:16)
[2019-09-11] MEDS: ALBUMIN 25% 25 GM in PREMIX 1 EACH IV SCH ×3 (05:50→21:39)
[2019-09-11 05:59] LABS: Basophils % 0.6 % (0.0-0.8); Eosinophils # 0.1 10*3/uL (0.0-0.87); Eosinophils % 2.9 % (0.00-10.9); Hematocrit 31.2 VOL% (42.0-52.0); Hemoglobin 9.9 GM/DL (14.0-18.0); Immature Granulocytes % 0.6 %; Immature Granulocytes Absolute 0.02 #; Lymphocytes # 0.8 10*3/uL (1.4-4.0); Lymphocytes % 26.3 % (21.2-54.2); Mean Corpuscular HGB Conc 31.7 GM/DL (32-36); Mean Corpuscular Volume 92.6 FL (87-102); Mean Platelet Volume 9.8 FL (9.6-12.0); Monocytes % 16.2 % (1.7-12.7); Neutrophils % 53.4 % (38.7-73.9); Platelet Count 63 T/CUMM (130-400); Red Blood Count 3.37 MC/CUMM (3.8-5.5); Red Cell Distribution Width 17.7 % (9.3-17.3); White Blood Count 3.2 T/CUMM (4-12)
[2019-09-11 06:19] LABS: Albumin 2.2 G/DL (3.4-5.0); Bilirubin,Total 3.4 MG/DL (0.2-1.0); Calcium 8.1 MG/DL (8.5-10.1); Osmolality,Calculated 276.1 MOS/KG (273-304); Total Protein 5.2 G/DL (6.4-8.3)
[2019-09-11 06:50] LABS: Anisocytosis 2+; Band Neutrophils 3 % (0-10); Eosinophils 7 % (0-10); Lymphocytes 10 % (20-55); Macrocytosis 1+; Platelet Estimate Decreased; Poikilocytosis Slight; Segmented Neutrophils 74 % (50-85); Total Cells Counted 100
[2019-09-11] MEDS: INSULIN LISPRO 100 UNIT/ML SUBCUT SCH ×4 (08:00→21:40)
[2019-09-11] MEDS: PANTOPRAZOLE 40 MG VIAL IV SCH (09:51)
[2019-09-11] MEDS: FUROSEMIDE 40 MG/4 ML VIAL IV SCH (09:51)
[2019-09-11] MEDS: SOFOSBUVIR VELPATASVIR PO SCH (09:52)
[2019-09-11] MEDS: POTASSIUM CHLORIDE 20 MEQ TABLET PO SCH ×2 (09:52→21:39)
[2019-09-11] MEDS: MENTHOL/ZINC OXIDE OINT 71 GM JAR TOP SCH ×2 (09:52→21:39)
[2019-09-11] MEDS: ESCITALOPRAM 10 MG TABLET PO SCH (09:52)
[2019-09-11] MEDS: DOCUSATE SODIUM 100 MG CAPSULE PO SCH ×2 (09:52→21:40)
[2019-09-11] MEDS: LACTULOSE 20 GM/30 ML UDCUP PO SCH ×2 (09:52→21:39)
[2019-09-11] MEDS: DESITIN 4OZ/NYSTATIN 15 GRAM MIXTURE PASTE TOP SCH ×2 (09:52→21:40)
[2019-09-11 13:59] LABS: Hematocrit 30.1 VOL% (42.0-52.0)
[2019-09-11 14:02] LABS: Hemoglobin 9.7 GM/DL (14.0-18.0)
[2019-09-11] MEDS: traMADol 50 MG TABLET PO SCH ×2 (16:16→21:40)
[2019-09-12] MEDS: MEROPENEM 500 MG in SODIUM CHLORIDE 0.9% 100 ML IV SCH ×4 (00:59→18:33)
[2019-09-12] MEDS: ALBUMIN 25% 25 GM in PREMIX 1 EACH IV SCH ×2 (04:39→17:28)
[2019-09-12 06:15] LABS: Basophils % 0.5 % (0.0-0.8); Eosinophils % 1.8 % (0.00-10.9); Hematocrit 26.5 VOL% (42.0-52.0); Hemoglobin 8.6 GM/DL (14.0-18.0); Immature Granulocytes % 0.9 %; Immature Granulocytes Absolute 0.02 #; Lymphocytes # 0.7 10*3/uL (1.4-4.0); Mean Corpuscular HGB Conc 32.5 GM/DL (32-36); Mean Corpuscular Volume 91.7 FL (87-102); Mean Platelet Volume 10.4 FL (9.6-12.0); Monocytes % 19.5 % (1.7-12.7); Neutrophils % 47.3 % (38.7-73.9); Platelet Count 50 T/CUMM (130-400); Red Blood Count 2.89 MC/CUMM (3.8-5.5); White Blood Count 2.2 T/CUMM (4-12)
[2019-09-12 06:41] LABS: Albumin 2.7 G/DL (3.4-5.0); Bilirubin,Total 3.8 MG/DL (0.2-1.0); Calcium 8.1 MG/DL (8.5-10.1); Osmolality,Calculated 272.2 MOS/KG (273-304); Total Protein 5.2 G/DL (6.4-8.3)
[2019-09-12] MEDS: INSULIN LISPRO 100 UNIT/ML SUBCUT SCH ×4 (08:11→21:42)
[2019-09-12] MEDS: MENTHOL/ZINC OXIDE OINT 71 GM JAR TOP SCH ×2 (08:59→21:42)
[2019-09-12] MEDS: DOCUSATE SODIUM 100 MG CAPSULE PO SCH ×2 (08:59→21:42)
[2019-09-12] MEDS: traMADol 50 MG TABLET PO SCH ×4 (08:59→21:42)
[2019-09-12] MEDS: PANTOPRAZOLE 40 MG TABLET PO SCH (08:59)
[2019-09-12] MEDS: LACTULOSE 20 GM/30 ML UDCUP PO SCH ×2 (08:59→21:42)
[2019-09-12] MEDS: FUROSEMIDE 40 MG/4 ML VIAL IV SCH (08:59)
[2019-09-12] MEDS: ESCITALOPRAM 10 MG TABLET PO SCH (08:59)
[2019-09-12] MEDS: POTASSIUM CHLORIDE 20 MEQ TABLET PO SCH ×2 (08:59→21:42)
[2019-09-12] MEDS: SOFOSBUVIR VELPATASVIR PO SCH (09:00)
[2019-09-12] MEDS: LIDOCAINE 5% PATCH TRANSDERM SCH (09:00)
[2019-09-12] MEDS: DESITIN 4OZ/NYSTATIN 15 GRAM MIXTURE PASTE TOP SCH ×2 (09:03→21:42)
[2019-09-12 11:11] LABS: Band Neutrophils 1 % (0-10); Lymphocytes 27 % (20-55); Segmented Neutrophils 64 % (50-85); Total Cells Counted 100
[2019-09-12 11:12] LABS: Ovalocytes Few; Platelet Estimate Decreased; Polychromasia Slight
[2019-09-12] MEDS: VANCOMYCIN INJ 1,500 MG in SODIUM CHLORIDE 0.9% 500 ML IV SCH (13:01)
[2019-09-13] MEDS: MEROPENEM 500 MG in SODIUM CHLORIDE 0.9% 100 ML IV SCH ×4 (00:46→17:20)
[2019-09-13] MEDS: ALBUMIN 25% 25 GM in PREMIX 1 EACH IV SCH ×2 (02:30→10:25)
[2019-09-13 05:37] LABS: Eosinophils % 1.5 % (0.00-10.9); Hematocrit 25.2 VOL% (42.0-52.0); Hemoglobin 8.3 GM/DL (14.0-18.0); Immature Granulocytes % 0.5 %; Immature Granulocytes Absolute 0.01 #; Lymphocytes # 0.6 10*3/uL (1.4-4.0); Lymphocytes % 29.4 % (21.2-54.2); Mean Corpuscular HGB Conc 32.9 GM/DL (32-36); Mean Corpuscular Volume 91.6 FL (87-102); Monocytes % 19.6 % (1.7-12.7); Platelet Count 48 T/CUMM (130-400); Red Blood Count 2.75 MC/CUMM (3.8-5.5); Red Cell Distribution Width 18.5 % (9.3-17.3)
[2019-09-13 06:12] LABS: Bilirubin,Total 3.8 MG/DL (0.2-1.0); Calcium 8.4 MG/DL (8.5-10.1); Osmolality,Calculated 277.8 MOS/KG (273-304); Total Protein 5.3 G/DL (6.4-8.3)
[2019-09-13] MEDS: VANCOMYCIN INJ 1,500 MG in SODIUM CHLORIDE 0.9% 500 ML IV SCH (06:19)
[2019-09-13 06:31] LABS: Band Neutrophils 4 % (0-10); Eosinophils 1 % (0-10); Lymphocytes 31 % (20-55); Segmented Neutrophils 54 % (50-85); Total Cells Counted 100
[2019-09-13 06:32] LABS: Anisocytosis 1+; Hypochromasia 1+; Ovalocytes 1+
[2019-09-13 06:33] LABS: Platelet Estimate Decreased; Target Cells Few
[2019-09-13] MEDS: INSULIN LISPRO 100 UNIT/ML SUBCUT SCH ×4 (07:40→21:03)
[2019-09-13] MEDS: LACTULOSE 20 GM/30 ML UDCUP PO SCH ×2 (08:57→21:01)
[2019-09-13] MEDS: DOCUSATE SODIUM 100 MG CAPSULE PO SCH ×2 (08:57→21:02)
[2019-09-13] MEDS: PANTOPRAZOLE 40 MG TABLET PO SCH (08:57)
[2019-09-13] MEDS: DESITIN 4OZ/NYSTATIN 15 GRAM MIXTURE PASTE TOP SCH ×2 (08:58→21:03)
[2019-09-13] MEDS: LIDOCAINE 5% PATCH TRANSDERM SCH (08:58)
[2019-09-13] MEDS: ESCITALOPRAM 10 MG TABLET PO SCH (08:58)
[2019-09-13] MEDS: traMADol 50 MG TABLET PO SCH ×4 (08:58→21:00)
[2019-09-13] MEDS: POTASSIUM CHLORIDE 20 MEQ TABLET PO SCH ×2 (08:58→21:01)
[2019-09-13] MEDS: SOFOSBUVIR VELPATASVIR PO SCH (08:59)
[2019-09-13] MEDS: FUROSEMIDE 40 MG/4 ML VIAL IV SCH (08:59)
[2019-09-13] MEDS: MENTHOL/ZINC OXIDE OINT 71 GM JAR TOP SCH ×2 (09:02→21:02)
[2019-09-14] MEDS: MEROPENEM 500 MG in SODIUM CHLORIDE 0.9% 100 ML IV SCH ×3 (00:50→12:26)
[2019-09-14] MEDS: VANCOMYCIN INJ 1,500 MG in SODIUM CHLORIDE 0.9% 500 ML IV SCH (02:30)
[2019-09-14 06:48] LABS: Basophils % 0.4 % (0.0-0.8); Eosinophils % 1.1 % (0.00-10.9); Hematocrit 26.5 VOL% (42.0-52.0); Hemoglobin 8.8 GM/DL (14.0-18.0); Immature Granulocytes % 0.4 %; Immature Granulocytes Absolute 0.01 #; Lymphocytes # 0.6 10*3/uL (1.4-4.0); Lymphocytes % 23.5 % (21.2-54.2); Mean Corpuscular HGB Conc 33.2 GM/DL (32-36); Mean Corpuscular Volume 91.4 FL (87-102); Mean Platelet Volume 10.8 FL (9.6-12.0); Monocytes % 18.3 % (1.7-12.7); Neutrophils % 56.3 % (38.7-73.9); Platelet Count 50 T/CUMM (130-400); Red Cell Distribution Width 18.5 % (9.3-17.3); White Blood Count 2.7 T/CUMM (4-12)
[2019-09-14 07:15] LABS: Band Neutrophils 2 % (0-10); Hypochromasia 1+; Lymphocytes 18 % (20-55); Microcytosis 1+; Segmented Neutrophils 63 % (50-85); Total Cells Counted 100
[2019-09-14 07:16] LABS: Atypical Lymphocytes Few; Platelet Estimate Decreased; Polychromasia Slight
[2019-09-14] MEDS: INSULIN LISPRO 100 UNIT/ML SUBCUT SCH ×4 (07:43→23:18)
[2019-09-14] MEDS: MENTHOL/ZINC OXIDE OINT 71 GM JAR TOP SCH ×2 (08:48→21:45)
[2019-09-14] MEDS: PANTOPRAZOLE 40 MG TABLET PO SCH (08:49)
[2019-09-14] MEDS: LACTULOSE 20 GM/30 ML UDCUP PO SCH ×2 (08:49→21:41)
[2019-09-14] MEDS: DOCUSATE SODIUM 100 MG CAPSULE PO SCH ×2 (08:49→21:42)
[2019-09-14] MEDS: ESCITALOPRAM 10 MG TABLET PO SCH (08:49)
[2019-09-14] MEDS: traMADol 50 MG TABLET PO SCH ×4 (08:49→21:42)
[2019-09-14] MEDS: POTASSIUM CHLORIDE 20 MEQ TABLET PO SCH ×2 (08:49→21:42)
[2019-09-14] MEDS: LIDOCAINE 5% PATCH TRANSDERM SCH (08:50)
[2019-09-14] MEDS: DESITIN 4OZ/NYSTATIN 15 GRAM MIXTURE PASTE TOP SCH ×2 (08:51→21:44)
[2019-09-14] MEDS: SOFOSBUVIR VELPATASVIR PO SCH (08:51)
[2019-09-14 13:58] LABS: INR 1.3
[2019-09-14 14:14] LABS: Albumin 2.8 G/DL (3.4-5.0); Bilirubin,Direct 0.83 MG/DL (0.0-0.20); Bilirubin,Indirect 1.8 MG/DL (0.0-1.0); Bilirubin,Total 2.6 MG/DL (0.2-1.0); Total Protein 5.2 G/DL (6.4-8.3)
[2019-09-14] MEDS: FUROSEMIDE 40 MG/4 ML VIAL IV SCH (16:26)
[2019-09-14] MEDS: ACETAMINOPHEN 325 MG TABLET PO PRN (18:00)
[2019-09-15] MEDS: INSULIN LISPRO 100 UNIT/ML SUBCUT SCH ×4 (07:31→21:11)
[2019-09-15 07:32] LABS: Calcium 8.4 MG/DL (8.5-10.1); Osmolality,Calculated 273.1 MOS/KG (273-304)
[2019-09-15] MEDS: FUROSEMIDE 40 MG/4 ML VIAL IV SCH ×2 (08:44→16:18)
[2019-09-15] MEDS: ESCITALOPRAM 10 MG TABLET PO SCH (08:45)
[2019-09-15] MEDS: POTASSIUM CHLORIDE 20 MEQ TABLET PO SCH ×2 (08:45→21:09)
[2019-09-15] MEDS: traMADol 50 MG TABLET PO SCH ×4 (08:45→21:10)
[2019-09-15] MEDS: LACTULOSE 20 GM/30 ML UDCUP PO SCH ×2 (08:45→21:09)
[2019-09-15] MEDS: SPIRONOLACTONE 25 MG TABLET PO SCH ×2 (08:45→21:10)
[2019-09-15] MEDS: PANTOPRAZOLE 40 MG TABLET PO SCH (08:45)
[2019-09-15] MEDS: DOCUSATE SODIUM 100 MG CAPSULE PO SCH ×2 (08:45→21:10)
[2019-09-15] MEDS: LIDOCAINE 5% PATCH TRANSDERM SCH (08:52)
[2019-09-15] MEDS: cefTRIAXone 1,000 MG in SYRINGE 1 EACH IV SCH (09:42)
[2019-09-15] MEDS: SOFOSBUVIR VELPATASVIR PO SCH (10:42)
[2019-09-15 12:09] LABS: Neutrophils,Peritoneal Fluid 4 %
[2019-09-15 12:24] LABS: RBC,Peritoneal Fluid 538 T/CUMM
[2019-09-15] MEDS: VANCOMYCIN INJ 1,500 MG in SODIUM CHLORIDE 0.9% 500 ML IV SCH (13:07)
[2019-09-15] MEDS: DESITIN 4OZ/NYSTATIN 15 GRAM MIXTURE PASTE TOP SCH ×2 (15:05→21:10)
[2019-09-15] MEDS: MENTHOL/ZINC OXIDE OINT 71 GM JAR TOP SCH ×2 (15:15→21:10)
[2019-09-16] MEDS: VANCOMYCIN INJ 1,500 MG in SODIUM CHLORIDE 0.9% 500 ML IV SCH (06:34)
[2019-09-16] MEDS: ESCITALOPRAM 10 MG TABLET PO SCH (08:30)
[2019-09-16] MEDS: traMADol 50 MG TABLET PO SCH (08:30)
[2019-09-16] MEDS: cefTRIAXone 1,000 MG in SYRINGE 1 EACH IV SCH (08:32)
[2019-09-16] MEDS: SPIRONOLACTONE 25 MG TABLET PO SCH (08:32)
[2019-09-16] MEDS: PANTOPRAZOLE 40 MG TABLET PO SCH (08:32)
[2019-09-16] MEDS: DOCUSATE SODIUM 100 MG CAPSULE PO SCH (08:32)
[2019-09-16] MEDS: POTASSIUM CHLORIDE 20 MEQ TABLET PO SCH (08:32)
[2019-09-16] MEDS: LACTULOSE 20 GM/30 ML UDCUP PO SCH (08:32)
[2019-09-16] MEDS: MENTHOL/ZINC OXIDE OINT 71 GM JAR TOP SCH (08:33)
[2019-09-16] MEDS: DESITIN 4OZ/NYSTATIN 15 GRAM MIXTURE PASTE TOP SCH (08:33)
[2019-09-16] MEDS: INSULIN LISPRO 100 UNIT/ML SUBCUT SCH ×2 (08:33→11:30)
[2019-09-16] MEDS: FUROSEMIDE 40 MG/4 ML VIAL IV SCH (08:33)
[2019-09-16] MEDS: SOFOSBUVIR VELPATASVIR PO SCH (08:34)
[2019-09-16] MEDS: LIDOCAINE 5% PATCH TRANSDERM SCH (08:34)
[2019-09-16] MEDS: ACETAMINOPHEN 325 MG TABLET PO PRN (11:18)
[2019-09-16 11:51] VITALS: BP 132/76
== END 2019-09-16 11:27 | DRG 956 ==
LOC: EDBD → EDUNIT# → N.ED 18:58 → N.EDINP 20:41 → N.ICU 21:02 → N.3E 08-27 13:26
PROVIDERS: ADMIT Family Medicine; ATTEND Family Medicine

== ENCOUNTER 2020-07-20 09:26 | Inpatient (IN) ==
[2020-07-20 14:40] LABS: Basophils % 0.7 % (0.0-0.8); Eosinophils # 0.2 10*3/uL (0.0-0.87); Eosinophils % 2.9 % (0.00-10.9); Hematocrit 39.7 VOL% (42.0-52.0); Hemoglobin 13.4 GM/DL (14.0-18.0); Immature Granulocytes Absolute 0.06 #; Lymphocytes # 1.2 10*3/uL (1.4-4.0); Lymphocytes % 19.1 % (21.2-54.2); Mean Corpuscular HGB Conc 33.8 GM/DL (32-36); Mean Corpuscular Volume 88.2 FL (87-102); Mean Platelet Volume 8.9 FL (9.6-12.0); Monocytes % 10.1 % (1.7-12.7); Neutrophils % 66.2 % (38.7-73.9); Platelet Count 154 T/CUMM (130-400); White Blood Count 6.1 T/CUMM (4-12)
[2020-07-20 14:52] LABS: INR 1.1; PT Patient Result 11.4 SECS (9.8-11.9); Partial Thromboplastin Time 27.9 SECS (23.9-33.8)
[2020-07-20 15:06] LABS: Albumin 3.6 G/DL (3.4-5.0); Bilirubin,Total 1.2 MG/DL (0.2-1.0); Calcium 9.4 MG/DL (8.5-10.1); Total Protein 8.2 G/DL (6.4-8.3)
[2020-07-20 19:28] LABS: Bacteria,Urine Occasional /HPF (Few); Bilirubin,Urine Negative (Negative); Blood, Urine Large mg/dL (Negative); Glucose,Urine (UA) Negative (Negative); Ketones,Urine Negative (Negative); Nitrite,Urine Negative (Negative); Protein,Urine Negative; RBC,Urine 30 /HPF (0-4); Triple Phosphate Crystal,Urine Occasional /HPF (Few); Urine Appearance Slightly Hazy (Clear); Urine Color Yellow (Yellow); Urine Specific Gravity 1.006 (1.001-1.035); Urine Urobilinogen < 2.0 EU/DL (0.2-1.0); WBC,Urine 6 /HPF (0-6)
[2020-07-20] MEDS: LACTATED RINGERS 1,000 ML IV SCH (23:33)
[2020-07-21] MEDS ORDERED: propofoL 200 MG/20 ML VIAL IV ONE (06:52)
[2020-07-21] MEDS ORDERED: LIDOCAINE 2% 5 ML VIAL ONE (06:52)
[2020-07-21] MEDS ORDERED: fentaNYL 100 MCG/2 ML VIAL ONE (06:52)
[2020-07-21] MEDS ORDERED: MIDAZOLAM 2 MG/2 ML VIAL ONE (06:52)
[2020-07-21] MEDS ORDERED: ceFAZolin 2,000 MG in PREMIX 1 EACH IV ONE (06:54)
[2020-07-21] MEDS ORDERED: ROPIVACAINE 0.5% 30 ML VIAL ONE (07:33)
[2020-07-21] MEDS ORDERED: FAMOTIDINE 20 MG/2 ML VIAL IV ONE (07:35)
[2020-07-21] MEDS ORDERED: BUPIVACAINE 0.5% 50 ML VIAL ONE (07:41)
[2020-07-21] MEDS ORDERED: LIDOCAINE 2%/EPI 20 ML VIAL ONE (07:41)
[2020-07-21] MEDS ORDERED: LIDOCAINE 1% 5 ML VIAL ONE (07:44)
[2020-07-21] MEDS ORDERED: MELATONIN 3 MG TABLET PO PRN (08:00)
[2020-07-21] MEDS ORDERED: diphenhydrAMINE CAP 25 MG CAPSULE PO PRN (08:03)
[2020-07-21] MEDS ORDERED: ePHEDrine 50 MG/ML VIAL ONE (08:09)
[2020-07-21] MEDS ORDERED: ONDANSETRON 4 MG/2 ML VIAL ONE (08:16)
[2020-07-21] MEDS ORDERED: TRANEXAMIC ACID 1,000 MG/10 ML VIAL ONE ×2 (08:31→10:56)
[2020-07-21] MEDS ORDERED: BACITRACIN OINT 0.9 GM PACK TOP ONE (09:00)
[2020-07-21] MEDS ORDERED: HYDROmorphone 2 MG/1 ML VIAL ONE (09:10)
[2020-07-21] MEDS ORDERED: ESMOLOL 100 MG/10 ML VIAL IV ONE (09:26)
[2020-07-21] MEDS ORDERED: ALBUMIN 5% 12.5 GM/250 ML VIAL IV ONE (09:30)
[2020-07-21] MEDS ORDERED: SODIUM CHLORIDE 0.9% 1,000 ML IV PRN (09:36)
[2020-07-21] MEDS: FERROUS SULFATE 325 MG TABLET PO SCH ×2 (09:39→17:46)
[2020-07-21] MEDS: PROPRANOLOL 20 MG TABLET PO SCH ×2 (09:39→20:22)
[2020-07-21] MEDS: POTASSIUM CHLORIDE 20 MEQ TABLET PO SCH ×2 (09:39→20:22)
[2020-07-21] MEDS ORDERED: PHENYLEPHRINE 1 MG/10 ML SYRINGE IV ONE ×2 (10:17→10:44)
[2020-07-21] MEDS ORDERED: SODIUM CHLORIDE 0.9% 1,000 ML IV ONE (10:17)
[2020-07-21] MEDS ORDERED: LACTATED RINGERS 1,000 ML IV ONE (10:17)
[2020-07-21] MEDS: ARIPiprazole 10 MG TABLET PO SCH (10:22)
[2020-07-21] MEDS: SPIRONOLACTONE 25 MG TABLET PO SCH ×2 (10:23→20:22)
[2020-07-21] MEDS: busPIRone 10 MG TABLET PO SCH ×3 (10:23→20:22)
[2020-07-21] MEDS: ESCITALOPRAM 10 MG TABLET PO SCH (10:23)
[2020-07-21] MEDS: clonazePAM 0.5 MG TABLET PO SCH ×2 (10:23→20:22)
[2020-07-21] MEDS: DOCUSATE SODIUM 100 MG CAPSULE PO SCH ×2 (10:23→20:22)
[2020-07-21] MEDS: LACTULOSE 20 GM/30 ML UDCUP PO SCH ×2 (10:23→20:51)
[2020-07-21] MEDS: GABAPENTIN 300 MG CAPSULE PO SCH ×2 (10:23→20:22)
[2020-07-21] MEDS: FUROSEMIDE 40 MG TABLET PO SCH (10:23)
[2020-07-21] MEDS: PANTOPRAZOLE 40 MG TABLET PO SCH (10:24)
[2020-07-21] MEDS: KETOROLAC 15 MG/1 ML VIAL IV SCH ×3 (10:24→20:21)
[2020-07-21] MEDS ORDERED: SODIUM CHLORIDE 0.9% 250 ML IV ONE (10:44)
[2020-07-21] MEDS ORDERED: PHENYLEPHRINE 10 MG/1 ML VIAL IV ONE (10:44)
[2020-07-21] MEDS ORDERED: SODIUM CHLORIDE 0.9% 200 ML IV ONE (10:56)
[2020-07-21 11:06] LABS: Basophils # 0.1 10*3/uL (0.0-0.2); Basophils % 0.6 % (0.0-0.8); Eosinophils # 0.3 10*3/uL (0.0-0.87); Eosinophils % 1.6 % (0.00-10.9); Hematocrit 33.8 VOL% (42.0-52.0); Immature Granulocytes % 0.9 %; Immature Granulocytes Absolute 0.13 #; Lymphocytes # 3.4 10*3/uL (1.4-4.0); Lymphocytes % 22.4 % (21.2-54.2); Mean Corpuscular HGB Conc 33.4 GM/DL (32-36); Mean Corpuscular Volume 87.3 FL (87-102); Mean Platelet Volume 9.1 FL (9.6-12.0); Monocytes % 9.9 % (1.7-12.7); Neutrophils % 64.6 % (38.7-73.9); Platelet Count 165 T/CUMM (130-400); Red Blood Count 3.87 MC/CUMM (3.8-5.5); Red Cell Distribution Width 13.8 % (9.3-17.3)
[2020-07-21 11:07] LABS: Hemoglobin 11.3 GM/DL (14.0-18.0); White Blood Count 15.2 T/CUMM (4-12)
[2020-07-21] MEDS ORDERED: MUPIROCIN 2% OINT 22 GM TUBE TOP ONE (11:09)
[2020-07-21] MEDS ORDERED: SEVOFLURANE 1 UNIT/15 MINUTE INH ONE (11:36)
[2020-07-21] MEDS ORDERED: ceFAZolin 2,000 MG in PREMIX 1 EACH IV SCH (12:00)
[2020-07-21] MEDS ORDERED: ONDANSETRON 4 MG/2 ML VIAL IV PRN (12:08)
[2020-07-21] MEDS ORDERED: HYDROmorphone 2 MG/1 ML VIAL IV PRN (12:08)
[2020-07-21] MEDS: METOCLOPRAMIDE 10 MG/10 ML UDCUP PO SCH ×3 (13:02→23:54)
[2020-07-21 13:39] LABS: Hematocrit 32.3 VOL% (42.0-52.0); Hemoglobin 10.9 GM/DL (14.0-18.0)
[2020-07-21] MEDS: LACTATED RINGERS 1,000 ML IV SCH ×2 (14:03→20:23)
[2020-07-21] MEDS: ceFAZolin 2,000 MG in PREMIX 1 EACH IV SCH ×2 (15:08→22:00)
[2020-07-21] MEDS: ONDANSETRON 4 MG/2 ML VIAL IV PRN ×2 (15:09→21:13)
[2020-07-22] MEDS: HYDROmorphone 2 MG/1 ML VIAL IV PRN ×5 (01:27→22:44)
[2020-07-22] MEDS: KETOROLAC 15 MG/1 ML VIAL IV SCH (02:29)
[2020-07-22] MEDS: LACTATED RINGERS 1,000 ML IV SCH (03:52)
[2020-07-22] MEDS: ONDANSETRON 4 MG/2 ML VIAL IV PRN ×2 (04:12→18:24)
[2020-07-22 05:40] LABS: Basophils % 0.2 % (0.0-0.8); Eosinophils % 0.1 % (0.00-10.9); Hematocrit 20.6 VOL% (42.0-52.0); Immature Granulocytes % 1.3 %; Immature Granulocytes Absolute 0.19 #; Lymphocytes # 1.7 10*3/uL (1.4-4.0); Lymphocytes % 11.6 % (21.2-54.2); Mean Corpuscular HGB Conc 34.5 GM/DL (32-36); Mean Corpuscular Volume 85.5 FL (87-102); Monocytes % 9.6 % (1.7-12.7); Neutrophils % 77.2 % (38.7-73.9); Red Cell Distribution Width 13.7 % (9.3-17.3); White Blood Count 14.6 T/CUMM (4-12)
[2020-07-22] MEDS: METOCLOPRAMIDE 10 MG/10 ML UDCUP PO SCH ×3 (05:49→17:18)
[2020-07-22 05:59] LABS: Hemoglobin 7.1 GM/DL (14.0-18.0); Platelet Count 116 T/CUMM (130-400); Red Blood Count 2.41 MC/CUMM (3.8-5.5)
[2020-07-22] MEDS ORDERED: FONDAPARINUX 2.5 MG/0.5 ML SYRINGE SUBCUT SCH (06:00)
[2020-07-22 06:05] LABS: Calcium 7.8 MG/DL (8.5-10.1); Osmolality,Calculated 261.9 MOS/KG (273-304); Potassium 5.5 MMOL/L (3.5-5.1)
[2020-07-22] MEDS ORDERED: SODIUM CHLORIDE 0.9% 1,000 ML IV PRN (06:32)
[2020-07-22] MEDS: PROPRANOLOL 20 MG TABLET PO SCH ×2 (08:56→21:27)
[2020-07-22] MEDS: FUROSEMIDE 40 MG TABLET PO SCH (08:56)
[2020-07-22] MEDS: ESCITALOPRAM 10 MG TABLET PO SCH (08:56)
[2020-07-22] MEDS: DOCUSATE SODIUM 100 MG CAPSULE PO SCH ×2 (08:56→21:27)
[2020-07-22] MEDS: LACTULOSE 20 GM/30 ML UDCUP PO SCH ×2 (08:56→21:26)
[2020-07-22] MEDS: ARIPiprazole 10 MG TABLET PO SCH (08:56)
[2020-07-22] MEDS: FERROUS SULFATE 325 MG TABLET PO SCH ×2 (08:56→16:01)
[2020-07-22] MEDS: GABAPENTIN 300 MG CAPSULE PO SCH ×2 (08:56→21:28)
[2020-07-22] MEDS: clonazePAM 0.5 MG TABLET PO SCH ×2 (08:56→21:26)
[2020-07-22] MEDS: busPIRone 10 MG TABLET PO SCH ×3 (08:56→21:26)
[2020-07-22] MEDS: PANTOPRAZOLE 40 MG TABLET PO SCH (08:56)
[2020-07-22 18:20] LABS: Hematocrit 23.5 VOL% (42.0-52.0); Hemoglobin 8.2 GM/DL (14.0-18.0)
[2020-07-23] MEDS: METOCLOPRAMIDE 10 MG/10 ML UDCUP PO SCH ×4 (00:51→18:13)
[2020-07-23] MEDS: HYDROmorphone 2 MG/1 ML VIAL IV PRN ×4 (05:32→18:17)
[2020-07-23] MEDS: MAGNESIUM HYDROXIDE SUSP 30 ML UDCUP PO PRN ×2 (05:34→20:49)
[2020-07-23 05:41] LABS: Basophils % 0.3 % (0.0-0.8); Eosinophils % 0.2 % (0.00-10.9); Hematocrit 23.2 VOL% (42.0-52.0); Hemoglobin 8.2 GM/DL (14.0-18.0); Immature Granulocytes % 2.4 %; Lymphocytes # 1.4 10*3/uL (1.4-4.0); Lymphocytes % 11.1 % (21.2-54.2); Mean Corpuscular HGB Conc 35.3 GM/DL (32-36); Mean Corpuscular Volume 82.9 FL (87-102); Mean Platelet Volume 9.4 FL (9.6-12.0); Monocytes % 13.8 % (1.7-12.7); Neutrophils % 72.2 % (38.7-73.9); Platelet Count 100 T/CUMM (130-400); Red Cell Distribution Width 13.3 % (9.3-17.3); White Blood Count 12.6 T/CUMM (4-12)
[2020-07-23 05:58] LABS: Calcium 8.1 MG/DL (8.5-10.1); Osmolality,Calculated 261.9 MOS/KG (273-304); Potassium 4.5 MMOL/L (3.5-5.1)
[2020-07-23] MEDS: PANTOPRAZOLE 40 MG TABLET PO SCH (08:46)
[2020-07-23] MEDS: GABAPENTIN 300 MG CAPSULE PO SCH ×2 (08:46→20:44)
[2020-07-23] MEDS: busPIRone 10 MG TABLET PO SCH ×3 (08:46→20:45)
[2020-07-23] MEDS: clonazePAM 0.5 MG TABLET PO SCH ×2 (08:46→20:44)
[2020-07-23] MEDS: DOCUSATE SODIUM 100 MG CAPSULE PO SCH ×2 (08:46→20:44)
[2020-07-23] MEDS: ARIPiprazole 10 MG TABLET PO SCH (08:46)
[2020-07-23] MEDS: FERROUS SULFATE 325 MG TABLET PO SCH ×2 (08:46→18:13)
[2020-07-23] MEDS: PROPRANOLOL 20 MG TABLET PO SCH ×2 (08:46→20:44)
[2020-07-23] MEDS: ESCITALOPRAM 10 MG TABLET PO SCH (08:46)
[2020-07-23] MEDS: FUROSEMIDE 40 MG TABLET PO SCH (08:46)
[2020-07-23] MEDS: LACTULOSE 20 GM/30 ML UDCUP PO SCH ×2 (09:02→20:45)
[2020-07-23] MEDS: AMPICILLIN INJ 1,000 MG in SODIUM CHLORIDE 0.9% 100 ML IV SCH ×2 (11:08→18:14)
[2020-07-23] MEDS: ERTAPENEM 1,000 MG in SODIUM CHLORIDE 0.9% 100 ML IV SCH (12:03)
[2020-07-24] MEDS: METOCLOPRAMIDE 10 MG/10 ML UDCUP PO SCH ×4 (00:11→18:08)
[2020-07-24] MEDS: AMPICILLIN INJ 1,000 MG in SODIUM CHLORIDE 0.9% 100 ML IV SCH ×3 (03:18→20:42)
[2020-07-24 05:19] LABS: Basophils % 0.2 % (0.0-0.8); Eosinophils # 0.1 10*3/uL (0.0-0.87); Eosinophils % 1.7 % (0.00-10.9); Hematocrit 21.1 VOL% (42.0-52.0); Hemoglobin 7.2 GM/DL (14.0-18.0); Immature Granulocytes % 1.9 %; Lymphocytes % 19.6 % (21.2-54.2); Mean Corpuscular HGB Conc 34.1 GM/DL (32-36); Mean Corpuscular Volume 87.2 FL (87-102); Mean Platelet Volume 9.9 FL (9.6-12.0); Monocytes % 16.7 % (1.7-12.7); Neutrophils % 59.9 % (38.7-73.9); Platelet Count 81 T/CUMM (130-400); Red Blood Count 2.42 MC/CUMM (3.8-5.5); Red Cell Distribution Width 13.7 % (9.3-17.3); White Blood Count 5.2 T/CUMM (4-12)
[2020-07-24] MEDS: MAGNESIUM HYDROXIDE SUSP 30 ML UDCUP PO PRN ×3 (05:32→20:44)
[2020-07-24] MEDS: HYDROmorphone 2 MG/1 ML VIAL IV PRN ×4 (05:41→16:35)
[2020-07-24 06:14] LABS: Eosinophils 2 % (0-10); Hypochromasia 2+; Lymphocytes 18 % (20-55); Microcytosis 1+; Platelet Estimate Decreased; Segmented Neutrophils 70 % (50-85); Total Cells Counted 100
[2020-07-24] MEDS ORDERED: SODIUM CHLORIDE 0.9% 1,000 ML IV PRN (08:05)
[2020-07-24] MEDS: LACTULOSE 20 GM/30 ML UDCUP PO SCH ×2 (08:42→20:44)
[2020-07-24] MEDS: DOCUSATE SODIUM 100 MG CAPSULE PO SCH ×2 (09:12→20:44)
[2020-07-24] MEDS: busPIRone 10 MG TABLET PO SCH ×3 (09:12→20:43)
[2020-07-24] MEDS: ARIPiprazole 10 MG TABLET PO SCH (09:12)
[2020-07-24] MEDS: clonazePAM 0.5 MG TABLET PO SCH ×2 (09:12→20:43)
[2020-07-24] MEDS: ESCITALOPRAM 10 MG TABLET PO SCH (09:12)
[2020-07-24] MEDS: PANTOPRAZOLE 40 MG TABLET PO SCH (09:12)
[2020-07-24] MEDS: FERROUS SULFATE 325 MG TABLET PO SCH ×2 (09:12→16:35)
[2020-07-24] MEDS: PROPRANOLOL 20 MG TABLET PO SCH ×2 (09:12→20:44)
[2020-07-24] MEDS: FUROSEMIDE 40 MG TABLET PO SCH (09:12)
[2020-07-24] MEDS: GABAPENTIN 300 MG CAPSULE PO SCH ×2 (09:12→20:43)
[2020-07-24] MEDS: ERTAPENEM 1,000 MG in SODIUM CHLORIDE 0.9% 100 ML IV SCH (12:13)
[2020-07-25] MEDS: METOCLOPRAMIDE 10 MG/10 ML UDCUP PO SCH ×5 (00:57→23:21)
[2020-07-25] MEDS: AMPICILLIN INJ 1,000 MG in SODIUM CHLORIDE 0.9% 100 ML IV SCH ×3 (03:56→18:25)
[2020-07-25 05:31] LABS: Basophils % 0.4 % (0.0-0.8); Eosinophils # 0.1 10*3/uL (0.0-0.87); Eosinophils % 1.3 % (0.00-10.9); Hematocrit 25.2 VOL% (42.0-52.0); Immature Granulocytes % 1.9 %; Lymphocytes # 1.1 10*3/uL (1.4-4.0); Lymphocytes % 19.5 % (21.2-54.2); Mean Corpuscular HGB Conc 34.9 GM/DL (32-36); Mean Corpuscular Volume 86.3 FL (87-102); Mean Platelet Volume 10.1 FL (9.6-12.0); Monocytes % 15.6 % (1.7-12.7); Neutrophils % 61.3 % (38.7-73.9); Red Cell Distribution Width 13.6 % (9.3-17.3); White Blood Count 5.4 T/CUMM (4-12)
[2020-07-25 05:32] LABS: Hemoglobin 8.8 GM/DL (14.0-18.0); Platelet Count 83 T/CUMM (130-400); Red Blood Count 2.92 MC/CUMM (3.8-5.5)
[2020-07-25 06:06] LABS: Band Neutrophils 2 % (0-10); Eosinophils 3 % (0-10); Hypochromasia 2+; Lymphocytes 20 % (20-55); Metamyelocytes 1 %; Platelet Estimate Decreased; Segmented Neutrophils 60 % (50-85); Total Cells Counted 100
[2020-07-25] MEDS: HYDROmorphone 2 MG/1 ML VIAL IV PRN ×3 (06:43→15:50)
[2020-07-25] MEDS: clonazePAM 0.5 MG TABLET PO SCH ×2 (09:01→21:00)
[2020-07-25] MEDS: busPIRone 10 MG TABLET PO SCH ×3 (09:01→20:59)
[2020-07-25] MEDS: ARIPiprazole 10 MG TABLET PO SCH (09:01)
[2020-07-25] MEDS: PANTOPRAZOLE 40 MG TABLET PO SCH (09:01)
[2020-07-25] MEDS: ESCITALOPRAM 10 MG TABLET PO SCH (09:01)
[2020-07-25] MEDS: DOCUSATE SODIUM 100 MG CAPSULE PO SCH ×2 (09:02→21:02)
[2020-07-25] MEDS: LACTULOSE 20 GM/30 ML UDCUP PO SCH ×2 (09:02→21:02)
[2020-07-25] MEDS: GABAPENTIN 300 MG CAPSULE PO SCH ×2 (09:02→21:00)
[2020-07-25] MEDS: FERROUS SULFATE 325 MG TABLET PO SCH ×2 (09:02→17:32)
[2020-07-25] MEDS: PROPRANOLOL 20 MG TABLET PO SCH ×2 (09:02→21:00)
[2020-07-25] MEDS: FUROSEMIDE 40 MG TABLET PO SCH (09:02)
[2020-07-25] MEDS: ERTAPENEM 1,000 MG in SODIUM CHLORIDE 0.9% 100 ML IV SCH (11:18)
[2020-07-26] MEDS: HYDROmorphone 2 MG/1 ML VIAL IV PRN ×2 (00:46→06:50)
[2020-07-26] MEDS: AMPICILLIN INJ 1,000 MG in SODIUM CHLORIDE 0.9% 100 ML IV SCH ×2 (03:42→11:50)
[2020-07-26] MEDS: METOCLOPRAMIDE 10 MG/10 ML UDCUP PO SCH ×2 (06:43→11:50)
[2020-07-26] MEDS: ARIPiprazole 10 MG TABLET PO SCH (08:55)
[2020-07-26] MEDS: busPIRone 10 MG TABLET PO SCH ×2 (08:55→14:11)
[2020-07-26] MEDS: ESCITALOPRAM 10 MG TABLET PO SCH (08:56)
[2020-07-26] MEDS: PROPRANOLOL 20 MG TABLET PO SCH (08:56)
[2020-07-26] MEDS: FERROUS SULFATE 325 MG TABLET PO SCH (08:56)
[2020-07-26] MEDS: FUROSEMIDE 40 MG TABLET PO SCH (08:56)
[2020-07-26] MEDS: GABAPENTIN 300 MG CAPSULE PO SCH (08:56)
[2020-07-26] MEDS: PANTOPRAZOLE 40 MG TABLET PO SCH (08:56)
[2020-07-26] MEDS: LACTULOSE 20 GM/30 ML UDCUP PO SCH (09:03)
[2020-07-26] MEDS: DOCUSATE SODIUM 100 MG CAPSULE PO SCH (09:03)
[2020-07-26] MEDS: clonazePAM 0.5 MG TABLET PO SCH (09:06)
[2020-07-26 11:14] VITALS: BP 107/53
[2020-07-26] MEDS: ERTAPENEM 1,000 MG in SODIUM CHLORIDE 0.9% 100 ML IV SCH (12:45)
== END 2020-07-26 16:14 | DRG 475 ==
LOC: EDSTATUS 09:26 → N.3E 13:24
PROVIDERS: ADMIT Orthopaedic Surgery; ATTEND Orthopaedic Surgery

== ENCOUNTER 2021-02-14 10:37 | Inpatient (IN) ==
[2021-02-14] MEDS ORDERED: MORPHINE 2 MG/1 ML SYRINGE IV ONE ×2 (11:01→14:32)
[2021-02-14] MEDS ORDERED: ONDANSETRON 4 MG/2 ML VIAL IV ONE (11:01)
[2021-02-14] MEDS ORDERED: PANTOPRAZOLE 40 MG VIAL IV STA (11:01)
[2021-02-14] MEDS ORDERED: SODIUM CHLORIDE 0.9% 1,000 ML IV STA (11:01)
[2021-02-14 11:54] LABS: Basophils % 0.5 % (0.0-0.8); Eosinophils # 0.1 10*3/uL (0.0-0.87); Eosinophils % 2.1 % (0.00-10.9); Hematocrit 38.7 VOL% (42.0-52.0); Hemoglobin 13.3 GM/DL (14.0-18.0); Immature Granulocytes % 0.7 %; Immature Granulocytes Absolute 0.03 #; Lymphocytes # 0.8 10*3/uL (1.4-4.0); Lymphocytes % 19.6 % (21.2-54.2); Mean Corpuscular HGB Conc 34.4 GM/DL (32-36); Mean Corpuscular Volume 87.6 FL (87-102); Mean Platelet Volume 9.7 FL (9.6-12.0); Monocytes % 14.4 % (1.7-12.7); Neutrophils % 62.7 % (38.7-73.9); Platelet Count 98 T/CUMM (130-400); Red Blood Count 4.42 MC/CUMM (3.8-5.5); Red Cell Distribution Width 12.9 % (9.3-17.3); White Blood Count 4.2 T/CUMM (4-12)
[2021-02-14 11:59] LABS: Bacteria,Urine Occasional /HPF (Few); Bilirubin,Urine Negative (Negative); Blood, Urine Small mg/dL (Negative); Glucose,Urine (UA) Negative (Negative); Ketones,Urine Negative (Negative); Nitrite,Urine Negative (Negative); Protein,Urine Negative; RBC,Urine 1 /HPF (0-4); Urine Appearance CLEAR (Clear); Urine Color Straw (Yellow); Urine Specific Gravity 1.003 (1.001-1.035)
[2021-02-14 12:04] LABS: INR 1.1
[2021-02-14 12:25] LABS: Albumin 3.4 G/DL (3.4-5.0); Bilirubin,Total 1.4 MG/DL (0.20-1.00); Calcium 8.9 MG/DL (8.5-10.1); Osmolality,Calculated 279.4 MOS/KG (273-304); Potassium 4.1 MMOL/L (3.5-5.1); Total Protein 6.6 G/DL (6.4-8.2)
[2021-02-14 12:39] LABS: Platelet Estimate Adequate
[2021-02-14] MEDS ORDERED: ONDANSETRON 4 MG/2 ML VIAL IV PRN (14:29)
[2021-02-14] MEDS ORDERED: ACETAMINOPHEN 325 MG TABLET PO PRN (14:29)
[2021-02-14] MEDS ORDERED: traMADol 50 MG TABLET PO PRN (14:29)
[2021-02-14] MEDS ORDERED: NALOXONE 0.4 MG/ML VIAL IV PRN (14:29)
[2021-02-14] MEDS: SODIUM CHLORIDE 0.9% 1,000 ML IV SCH ×2 (15:14→23:17)
[2021-02-14] MEDS: DOCUSATE SODIUM 100 MG CAPSULE PO SCH (21:07)
[2021-02-15] MEDS: MORPHINE 2 MG/1 ML SYRINGE IV PRN ×2 (02:58→07:30)
[2021-02-15 05:55] LABS: Eosinophils # 0.2 10*3/uL (0.0-0.87); Eosinophils % 6.1 % (0.00-10.9); Hematocrit 35.8 VOL% (42.0-52.0); Hemoglobin 12.5 GM/DL (14.0-18.0); Immature Granulocytes % 0.6 %; Immature Granulocytes Absolute 0.02 #; Lymphocytes # 1.1 10*3/uL (1.4-4.0); Lymphocytes % 33.7 % (21.2-54.2); Mean Corpuscular HGB Conc 34.9 GM/DL (32-36); Mean Corpuscular Volume 88.8 FL (87-102); Mean Platelet Volume 9.9 FL (9.6-12.0); Monocytes % 14.7 % (1.7-12.7); Neutrophils % 43.9 % (38.7-73.9); Platelet Count 95 T/CUMM (130-400); Red Blood Count 4.03 MC/CUMM (3.8-5.5); Red Cell Distribution Width 12.9 % (9.3-17.3); White Blood Count 3.1 T/CUMM (4-12)
[2021-02-15 06:12] LABS: Albumin 3.1 G/DL (3.4-5.0); Bilirubin,Total 1.3 MG/DL (0.20-1.00); Calcium 8.4 MG/DL (8.5-10.1); Osmolality,Calculated 276.4 MOS/KG (273-304); Potassium 3.7 MMOL/L (3.5-5.1)
[2021-02-15 06:14] LABS: Hypochromasia Slight; Microcytosis Slight; Platelet Estimate Decreased
[2021-02-15] MEDS: SODIUM CHLORIDE 0.9% 1,000 ML IV SCH ×3 (07:23→22:30)
[2021-02-15] MEDS ORDERED: MAGNESIUM HYDROXIDE SUSP 30 ML UDCUP PO PRN (08:21)
[2021-02-15] MEDS: DOCUSATE SODIUM 100 MG CAPSULE PO SCH ×2 (09:40→20:28)
[2021-02-15] MEDS ORDERED: ARIPiprazole 15 MG TABLET PO SCH (11:00)
[2021-02-15] MEDS ORDERED: SODIUM CHLORIDE 0.9% 500 ML IV SCH (11:00)
[2021-02-15] MEDS: oxyCODONE/ACETAMINOPHEN 5-325 MG TABLET PO SCH ×3 (11:23→20:30)
[2021-02-15] MEDS ORDERED: propofoL 200 MG/20 ML VIAL IV ONE ×2 (13:23→13:36)
[2021-02-15] MEDS ORDERED: LIDOCAINE 2% 5 ML VIAL ONE (13:23)
[2021-02-15] MEDS: amLODIPine 5 MG TABLET PO SCH (15:01)
[2021-02-15] MEDS: ARIPiprazole 5 MG TABLET PO SCH (15:02)
[2021-02-15] MEDS: GABAPENTIN 300 MG CAPSULE PO SCH ×2 (15:02→20:29)
[2021-02-15] MEDS: ESCITALOPRAM 10 MG TABLET PO SCH (15:04)
[2021-02-15] MEDS: clonazePAM 0.5 MG TABLET PO SCH ×2 (15:07→20:29)
[2021-02-15] MEDS: busPIRone 15 MG TABLET PO SCH ×4 (15:08→20:28)
[2021-02-15] MEDS: PANTOPRAZOLE 40 MG TABLET PO SCH (15:08)
[2021-02-15] MEDS: FERROUS SULFATE 325 MG TABLET PO SCH (17:32)
[2021-02-15] MEDS ORDERED: MELATONIN 3 MG TABLET PO SCH (21:00)
[2021-02-15] MEDS ORDERED: SENNA 8.6 MG TABLET PO SCH (21:00)
[2021-02-16] MEDS: SODIUM CHLORIDE 0.9% 1,000 ML IV SCH ×3 (02:32→14:46)
[2021-02-16 07:19] LABS: Basophils % 0.5 % (0.0-0.8); Eosinophils # 0.2 10*3/uL (0.0-0.87); Eosinophils % 4.2 % (0.00-10.9); Hematocrit 36.9 VOL% (42.0-52.0); Hemoglobin 12.5 GM/DL (14.0-18.0); Immature Granulocytes % 0.3 %; Immature Granulocytes Absolute 0.01 #; Lymphocytes # 0.8 10*3/uL (1.4-4.0); Lymphocytes % 21.8 % (21.2-54.2); Mean Corpuscular HGB Conc 33.9 GM/DL (32-36); Mean Corpuscular Volume 89.1 FL (87-102); Mean Platelet Volume 9.6 FL (9.6-12.0); Monocytes % 13.3 % (1.7-12.7); Neutrophils % 59.9 % (38.7-73.9); Platelet Count 101 T/CUMM (130-400); Red Blood Count 4.14 MC/CUMM (3.8-5.5); Red Cell Distribution Width 12.7 % (9.3-17.3); White Blood Count 3.8 T/CUMM (4-12)
[2021-02-16 07:45] LABS: Hypochromasia 1+; Microcytosis 1+; Platelet Estimate Decreased
[2021-02-16] MEDS: busPIRone 15 MG TABLET PO SCH ×2 (08:48→14:57)
[2021-02-16] MEDS: amLODIPine 5 MG TABLET PO SCH (08:48)
[2021-02-16] MEDS: DOCUSATE SODIUM 100 MG CAPSULE PO SCH (08:48)
[2021-02-16] MEDS: oxyCODONE/ACETAMINOPHEN 5-325 MG TABLET PO SCH ×2 (08:49→14:57)
[2021-02-16] MEDS: PANTOPRAZOLE 40 MG TABLET PO SCH (08:49)
[2021-02-16] MEDS: ESCITALOPRAM 10 MG TABLET PO SCH (08:49)
[2021-02-16] MEDS: GABAPENTIN 300 MG CAPSULE PO SCH (08:49)
[2021-02-16] MEDS: clonazePAM 0.5 MG TABLET PO SCH (08:50)
[2021-02-16] MEDS: FERROUS SULFATE 325 MG TABLET PO SCH (08:50)
[2021-02-16] MEDS: ARIPiprazole 5 MG TABLET PO SCH (08:54)
[2021-02-16] MEDS ORDERED: MULTIVITAMIN (CENTRUM) TABLET PO SCH (09:00)
[2021-02-16 11:42] VITALS: BP 142/70
== END 2021-02-16 16:20 | DRG 432 ==
LOC: EDUNIT# → EDBD → N.ED 10:37 → N.5E 14:29
PROVIDERS: ADMIT Family Medicine; ATTEND Family Medicine
PROC: EGDWEBL (ICD-10-PCS; 2021-02-15 11:35)

== ENCOUNTER 2022-03-18 03:12 | Inpatient (IN) ==
[2022-03-18 03:37] LABS: Basophils % 0.1 % (0.0-0.8); Eosinophils % 0.6 % (0.00-10.9); Hematocrit 31.1 VOL% (42.0-52.0); Hemoglobin 11.5 GM/DL (14.0-18.0); Immature Granulocytes % 0.8 %; Immature Granulocytes Absolute 0.06 #; Lymphocytes # 0.8 10*3/uL (1.4-4.0); Lymphocytes % 11.6 % (21.2-54.2); Mean Corpuscular Volume 81.2 FL (87-102); Mean Platelet Volume 9.3 FL (9.6-12.0); Monocytes # 1.2 10*3/uL (0.11-0.8); Monocytes % 16.9 % (1.7-12.7); Red Blood Count 3.83 MC/CUMM (3.8-5.5); Red Cell Distribution Width 12.2 % (9.3-17.3); White Blood Count 7.2 T/CUMM (4-12)
[2022-03-18 03:38] LABS: Platelet Count 95 T/CUMM (130-400)
[2022-03-18] MEDS ORDERED: ALBUTEROL/IPRATROPIUM 3 ML NEB RESP TX STA (03:39)
[2022-03-18 04:00] LABS: Eosinophils 1 % (0-10); Lymphocytes 14 % (20-55); Platelet Estimate Decreased; Total Cells Counted 100
[2022-03-18 04:01] LABS: Albumin 3.5 G/DL (3.4-5.0); Bilirubin,Total 1.7 MG/DL (0.20-1.00); Calcium 8.5 MG/DL (8.5-10.1); Potassium 4.3 MMOL/L (3.5-5.1); Total Protein 6.4 G/DL (6.4-8.2)
[2022-03-18] MEDS ORDERED: SODIUM CHLORIDE 0.9% 1,000 ML IV STA (04:04)
[2022-03-18 04:05] LABS: Urine Appearance Clear (Clear); Urine Color Yellow (Yellow)
[2022-03-18 04:06] LABS: Bilirubin,Urine Negative (Negative); Blood, Urine Negative (Negative); Glucose,Urine (UA) Negative (Negative); Ketones,Urine Trace mg/dL (Negative); Nitrite,Urine Negative (Negative); Protein,Urine Negative (Negative); Urine Urobilinogen 0.2 eU/dL (<2.0); Urine pH 6.5 (4.5-8.0)
[2022-03-18 04:10] LABS: RBC,Urine <1 /HPF (0-4)
[2022-03-18] MEDS ORDERED: MAGNESIUM SULF RIDER 2 GM/50 ML PREMIX IV ONE (05:34)
[2022-03-18] MEDS ORDERED: GLUCAGON 1 MG VIAL IM PRN (05:42)
[2022-03-18] MEDS ORDERED: ONDANSETRON 4 MG/2 ML VIAL IV PRN (05:42)
[2022-03-18] MEDS ORDERED: hydrALAZINE 20 MG/1 ML VIAL IV PRN (05:42)
[2022-03-18] MEDS ORDERED: ACETAMINOPHEN 325 MG TABLET PO PRN ×2 (05:42→11:13)
[2022-03-18] MEDS ORDERED: DEXTROSE 10% 250 ML BAG IV PRN (05:42)
[2022-03-18] MEDS ORDERED: MORPHINE 2 MG/1 ML SYRINGE IV PRN (05:42)
[2022-03-18] MEDS: SODIUM CHLORIDE 0.9% 1,000 ML IV SCH ×2 (06:14→15:55)
[2022-03-18] MEDS: ALBUTEROL/IPRATROPIUM 3 ML NEB RESP TX SCH ×3 (07:45→18:53)
[2022-03-18 07:56] LABS: Calcium 8.4 MG/DL (8.5-10.1); Osmolality,Calculated 235.5 MOS/KG (273-304); Potassium 4.2 MMOL/L (3.5-5.1)
[2022-03-18] MEDS ORDERED: clonazePAM 0.5 MG TABLET PO PRN (08:30)
[2022-03-18] MEDS: PANTOPRAZOLE 40 MG TABLET PO SCH (08:59)
[2022-03-18] MEDS ORDERED: SPIRONOLACTONE 50 MG TABLET PO SCH (09:00)
[2022-03-18] MEDS: ESCITALOPRAM 10 MG TABLET PO SCH (09:03)
[2022-03-18] MEDS: LACTULOSE 20 GM/30 ML UDCUP PO SCH ×2 (09:04→09:34)
[2022-03-18 10:27] LABS: Calcium 8.3 MG/DL (8.5-10.1); Osmolality,Calculated 239.3 MOS/KG (273-304); Potassium 4.3 MMOL/L (3.5-5.1)
[2022-03-18] MEDS ORDERED: MAGNESIUM HYDROXIDE SUSP 30 ML UDCUP PO PRN (11:09)
[2022-03-18] MEDS ORDERED: PROMETHAZINE 25 MG TABLET PO PRN (11:09)
[2022-03-18 14:25] LABS: Calcium 8.3 MG/DL (8.5-10.1); Osmolality,Calculated 238.3 MOS/KG (273-304); Potassium 4.1 MMOL/L (3.5-5.1)
[2022-03-18] MEDS ORDERED: ALBUTEROL/IPRATROPIUM 3 ML NEB RESP TX PRN (15:00)
[2022-03-18 18:13] LABS: Calcium 8.2 MG/DL (8.5-10.1); Osmolality,Calculated 249.6 MOS/KG (273-304); Potassium 3.9 MMOL/L (3.5-5.1)
[2022-03-18] MEDS: carBAMazepine 200 MG TABLET PO SCH (21:02)
[2022-03-18 21:15] LABS: Calcium 8.2 MG/DL (8.5-10.1); Osmolality,Calculated 250.4 MOS/KG (273-304); Potassium 3.7 MMOL/L (3.5-5.1)
[2022-03-19] MEDS: ALBUTEROL/IPRATROPIUM 3 ML NEB RESP TX SCH ×4 (00:42→19:21)
[2022-03-19] MEDS: SODIUM CHLORIDE 0.9% 1,000 ML IV SCH ×3 (01:01→09:01)
[2022-03-19 05:34] LABS: Basophils % 0.3 % (0.0-0.8); Eosinophils % 1.3 % (0.00-10.9); Hemoglobin 12.3 GM/DL (14.0-18.0); Immature Granulocytes % 1.6 %; Immature Granulocytes Absolute 0.05 #; Lymphocytes # 0.6 10*3/uL (1.4-4.0); Mean Corpuscular HGB Conc 36.2 GM/DL (32-36); Mean Corpuscular Volume 85.6 FL (87-102); Mean Platelet Volume 9.2 FL (9.6-12.0); Monocytes # 0.6 10*3/uL (0.11-0.8); Monocytes % 18.6 % (1.7-12.7); Neutrophils % 59.2 % (38.7-73.9); Red Blood Count 3.97 MC/CUMM (3.8-5.5); Red Cell Distribution Width 12.9 % (9.3-17.3); White Blood Count 3.1 T/CUMM (4-12)
[2022-03-19 05:36] LABS: Platelet Count 83 T/CUMM (130-400)
[2022-03-19 06:01] LABS: Eosinophils 2 % (0-10); Hypochromia Slight; Lymphocytes 13 % (20-55); Microcytosis Slight; Platelet Estimate Decreased; Total Cells Counted 100
[2022-03-19 06:11] LABS: Thyroid Stimulating Hormone 0.579 uIU/ml (0.358-3.74); Uric Acid 4.1 MG/DL (3.5-7.2)
[2022-03-19] MEDS: ESCITALOPRAM 10 MG TABLET PO SCH (08:18)
[2022-03-19] MEDS: carBAMazepine 200 MG TABLET PO SCH ×2 (08:18→20:34)
[2022-03-19] MEDS: OXYBUTYNIN XL 5 MG TABLET PO SCH (08:18)
[2022-03-19] MEDS: PANTOPRAZOLE 40 MG TABLET PO SCH (08:18)
[2022-03-19] MEDS: LACTULOSE 20 GM/30 ML UDCUP PO SCH (08:24)
[2022-03-19 12:30] LABS: Albumin 3.3 G/DL (3.4-5.0); Bilirubin,Total 0.6 MG/DL (0.20-1.00); Calcium 8.5 MG/DL (8.5-10.1); Osmolality,Calculated 267.1 MOS/KG (273-304); Potassium 3.8 MMOL/L (3.5-5.1); Total Protein 6.5 G/DL (6.4-8.2)
[2022-03-19] MEDS ORDERED: traMADol 50 MG TABLET PO PRN (13:20)
[2022-03-19] MEDS ORDERED: ARIPiprazole 10 MG TABLET PO SCH (14:00)
[2022-03-19] MEDS: SENNA 8.6 MG TABLET PO SCH (20:34)
[2022-03-20] MEDS: ALBUTEROL/IPRATROPIUM 3 ML NEB RESP TX SCH ×4 (00:13→19:24)
[2022-03-20 06:03] LABS: Basophils % 0.7 % (0.0-0.8); Eosinophils # 0.1 10*3/uL (0.0-0.87); Eosinophils % 2.4 % (0.00-10.9); Hematocrit 33.3 VOL% (42.0-52.0); Hemoglobin 11.6 GM/DL (14.0-18.0); Immature Granulocytes Absolute 0.03 #; Lymphocytes # 0.5 10*3/uL (1.4-4.0); Mean Corpuscular HGB Conc 34.8 GM/DL (32-36); Mean Corpuscular Volume 86.3 FL (87-102); Mean Platelet Volume 9.3 FL (9.6-12.0); Monocytes # 0.5 10*3/uL (0.11-0.8); Neutrophils % 62.9 % (38.7-73.9); Platelet Count 100 T/CUMM (130-400); Red Blood Count 3.86 MC/CUMM (3.8-5.5); Red Cell Distribution Width 13.5 % (9.3-17.3); White Blood Count 2.9 T/CUMM (4-12)
[2022-03-20 06:21] LABS: Albumin 3.1 G/DL (3.4-5.0); Bilirubin,Total 0.6 MG/DL (0.20-1.00); Calcium 8.6 MG/DL (8.5-10.1); Osmolality,Calculated 260.4 MOS/KG (273-304); Potassium 3.6 MMOL/L (3.5-5.1); Total Protein 6.1 G/DL (6.4-8.2)
[2022-03-20 06:23] LABS: Lymphocytes 20 % (20-55); Total Cells Counted 100
[2022-03-20 06:24] LABS: Hypochromia Slight; Microcytosis Slight; Platelet Estimate Decreased
[2022-03-20] MEDS ORDERED: MORPHINE 2 MG/1 ML SYRINGE IV PRN (09:22)
[2022-03-20] MEDS: PANTOPRAZOLE 40 MG TABLET PO SCH (09:33)
[2022-03-20] MEDS: carBAMazepine 200 MG TABLET PO SCH ×2 (09:33→20:50)
[2022-03-20] MEDS: LOSARTAN 50 MG TABLET PO SCH (09:34)
[2022-03-20] MEDS: OXYBUTYNIN XL 5 MG TABLET PO SCH (09:35)
[2022-03-20] MEDS: ESCITALOPRAM 10 MG TABLET PO SCH (09:35)
[2022-03-20] MEDS: LACTULOSE 20 GM/30 ML UDCUP PO SCH ×2 (09:36→09:38)
[2022-03-20] MEDS: oxyCODONE/ACETAMINOPHEN 5-325 MG TABLET PO PRN ×2 (13:22→20:51)
[2022-03-20] MEDS: SENNA 8.6 MG TABLET PO SCH (20:50)
[2022-03-21] MEDS: ALBUTEROL/IPRATROPIUM 3 ML NEB RESP TX SCH ×3 (00:08→14:12)
[2022-03-21] MEDS: oxyCODONE/ACETAMINOPHEN 5-325 MG TABLET PO PRN ×2 (03:13→09:16)
[2022-03-21] MEDS ORDERED: ARIPiprazole 10 MG TABLET PO SCH (09:00)
[2022-03-21] MEDS: ESCITALOPRAM 10 MG TABLET PO SCH (09:15)
[2022-03-21] MEDS: PANTOPRAZOLE 40 MG TABLET PO SCH (09:15)
[2022-03-21] MEDS: LACTULOSE 20 GM/30 ML UDCUP PO SCH (09:16)
[2022-03-21] MEDS: carBAMazepine 200 MG TABLET PO SCH (09:16)
[2022-03-21] MEDS: OXYBUTYNIN XL 5 MG TABLET PO SCH (09:16)
[2022-03-21] MEDS: LOSARTAN 50 MG TABLET PO SCH (09:16)
[2022-03-21 13:12] VITALS: BP 170/78
== END 2022-03-21 15:54 | DRG 392 ==
LOC: EDUNIT# → EDBD → N.ED 03:12 → N.EDINP 05:42 → SUATTDRO 05:42 → N.EDINP 06:26 → N.TELEN 07:08
PROVIDERS: ADMIT Family Medicine; ATTEND Family Medicine

== ENCOUNTER 2022-07-23 05:26 | Inpatient (IN) ==
[2022-07-23 06:01] LABS: Basophils % 0.6 % (0.0-0.8); Eosinophils # 0.1 10*3/uL (0.0-0.87); Eosinophils % 1.7 % (0.00-10.9); Hematocrit 33.2 VOL% (42.0-52.0); Hemoglobin 12.4 GM/DL (14.0-18.0); Immature Granulocytes % 0.6 %; Immature Granulocytes Absolute 0.03 #; Lymphocytes # 0.9 10*3/uL (1.4-4.0); Lymphocytes % 16.3 % (21.2-54.2); Mean Corpuscular HGB Conc 37.3 GM/DL (32-36); Mean Corpuscular Volume 81.4 FL (87-102); Mean Platelet Volume 8.7 FL (9.6-12.0); Monocytes # 0.7 10*3/uL (0.11-0.8); Monocytes % 12.1 % (1.7-12.7); Neutrophils % 68.7 % (38.7-73.9); Platelet Count 121 T/CUMM (130-400); Red Blood Count 4.08 MC/CUMM (3.8-5.5); Red Cell Distribution Width 11.9 % (9.3-17.3); White Blood Count 5.4 T/CUMM (4-12)
[2022-07-23 06:21] LABS: Bilirubin,Total 1.3 MG/DL (0.20-1.00); Calcium 8.5 MG/DL (8.5-10.1); Osmolality,Calculated 230.8 MOS/KG (273-304); Potassium 4.3 MMOL/L (3.5-5.1); Total Protein 6.6 G/DL (6.4-8.2)
[2022-07-23] MEDS ORDERED: HYDROmorphone 1 MG/1 ML SYRINGE IV STA (06:31)
[2022-07-23] MEDS ORDERED: ONDANSETRON 4 MG/2 ML VIAL IV STA (06:31)
[2022-07-23] MEDS ORDERED: HYDROmorphone 1 MG/1 ML SYRINGE ONE (06:32)
[2022-07-23] MEDS ORDERED: ONDANSETRON 4 MG/2 ML VIAL ONE (06:32)
[2022-07-23 06:35] LABS: Bilirubin,Urine Negative (Negative); Blood, Urine Trace mg/dL (Negative); Glucose,Urine (UA) Negative (Negative); Ketones,Urine Negative (Negative); Nitrite,Urine Negative (Negative); Protein,Urine Negative (Negative); RBC,Urine 1 /HPF (0-4); Urine Appearance Clear (Clear); Urine Color Light Yellow (Yellow); Urine Urobilinogen 0.2 eU/dL (<2.0); Urine pH 7.5 (4.5-8.0)
[2022-07-23] MEDS: SODIUM CHLORIDE 0.9% 1,000 ML IV SCH ×2 (08:00→16:32)
[2022-07-23] MEDS ORDERED: ONDANSETRON 4 MG/2 ML VIAL IV PRN (08:35)
[2022-07-23] MEDS: ACETAMINOPHEN 325 MG TABLET PO PRN (10:33)
[2022-07-23] MEDS: PANTOPRAZOLE 40 MG TABLET PO SCH (10:33)
[2022-07-23] MEDS: DOCUSATE SODIUM 100 MG CAPSULE PO SCH ×2 (10:33→20:45)
[2022-07-23] MEDS ORDERED: SODIUM CHLORIDE/POTASSIUM CHLORIDE TABLET PO ONE (11:00)
[2022-07-23] MEDS ORDERED: oxyCODONE/ACETAMINOPHEN 5-325 MG TABLET PO ONE (11:04)
[2022-07-23] MEDS ORDERED: ALBUTEROL/IPRATROPIUM 3 ML NEB RESP TX PRN (11:05)
[2022-07-23] MEDS ORDERED: oxyCODONE/ACETAMINOPHEN 5-325 MG TABLET PO SCH (15:00)
[2022-07-23] MEDS: oxyCODONE/ACETAMINOPHEN 5-325 MG TABLET PO SCH ×2 (15:35→20:45)
[2022-07-23] MEDS: carBAMazepine 200 MG TABLET PO SCH ×2 (15:35→20:47)
[2022-07-23] MEDS: busPIRone 15 MG TABLET PO SCH ×2 (15:35→20:45)
[2022-07-23] MEDS ORDERED: KETOROLAC 30 MG/1 ML VIAL IV ONE (16:00)
[2022-07-23] MEDS: FERROUS SULFATE 325 MG TABLET PO SCH (16:32)
[2022-07-23] MEDS: SENNA 8.6 MG TABLET PO SCH (20:45)
[2022-07-23] MEDS: MAGNESIUM CHLORIDE 64 MG TABLET PO SCH (20:45)
[2022-07-23] MEDS: MELATONIN 3 MG TABLET PO SCH (20:45)
[2022-07-23] MEDS: clonazePAM 0.5 MG TABLET PO SCH (20:47)
[2022-07-23] MEDS: ENOXAPARIN 30 MG/0.3 ML SYRINGE SUBCUT SCH (20:48)
[2022-07-24] MEDS: SODIUM CHLORIDE 0.9% 1,000 ML IV SCH ×3 (00:51→16:27)
[2022-07-24] MEDS: ACETAMINOPHEN 325 MG TABLET PO PRN ×2 (01:24→11:30)
[2022-07-24 06:04] LABS: Albumin 3.5 G/DL (3.4-5.0); Bilirubin,Total 1.1 MG/DL (0.20-1.00); Calcium 8.2 MG/DL (8.5-10.1); Osmolality,Calculated 235.5 MOS/KG (273-304); Potassium 3.8 MMOL/L (3.5-5.1)
[2022-07-24] MEDS: LACTULOSE 20 GM/30 ML UDCUP PO SCH (08:19)
[2022-07-24] MEDS: LOSARTAN 50 MG TABLET PO SCH (08:20)
[2022-07-24] MEDS: OXYBUTYNIN XL 5 MG TABLET PO SCH (08:20)
[2022-07-24] MEDS: clonazePAM 0.5 MG TABLET PO SCH ×2 (08:20→21:42)
[2022-07-24] MEDS: DOCUSATE SODIUM 100 MG CAPSULE PO SCH ×2 (08:20→21:42)
[2022-07-24] MEDS: MAGNESIUM CHLORIDE 64 MG TABLET PO SCH ×2 (08:20→21:42)
[2022-07-24] MEDS: MULTIVITAMIN (CENTRUM) TABLET PO SCH (08:21)
[2022-07-24] MEDS: SODIUM CHLORIDE 1 GM TABLET PO SCH ×2 (08:21→21:42)
[2022-07-24] MEDS: oxyCODONE/ACETAMINOPHEN 5-325 MG TABLET PO SCH ×3 (08:21→21:42)
[2022-07-24] MEDS: carBAMazepine 200 MG TABLET PO SCH ×2 (08:21→21:42)
[2022-07-24] MEDS: FERROUS SULFATE 325 MG TABLET PO SCH ×2 (08:21→17:16)
[2022-07-24] MEDS: ARIPiprazole 5 MG TABLET PO SCH (08:21)
[2022-07-24] MEDS: PANTOPRAZOLE 40 MG TABLET PO SCH (08:21)
[2022-07-24] MEDS: TAMSULOSIN 0.4 MG CAPSULE PO SCH (08:21)
[2022-07-24] MEDS: busPIRone 15 MG TABLET PO SCH ×3 (08:21→21:42)
[2022-07-24] MEDS: amLODIPine 10 MG TABLET PO SCH (08:21)
[2022-07-24] MEDS: SKIN HEALING OINT (AQUAPHOR) 50 GM TUBE TOP SCH (08:25)
[2022-07-24] MEDS ORDERED: MAGNESIUM SULF RIDER 4 GM/100 ML PREMIX IV ONE (16:08)
[2022-07-24] MEDS: METOCLOPRAMIDE 5 MG TABLET PO SCH (17:16)
[2022-07-24] MEDS: SENNA 8.6 MG TABLET PO SCH (21:42)
[2022-07-24] MEDS: ENOXAPARIN 30 MG/0.3 ML SYRINGE SUBCUT SCH (21:43)
[2022-07-24] MEDS: MELATONIN 3 MG TABLET PO SCH (21:46)
[2022-07-25] MEDS: SODIUM CHLORIDE 0.9% 1,000 ML IV SCH ×3 (03:33→20:25)
[2022-07-25 05:41] LABS: Basophils % 0.6 % (0.0-0.8); Hematocrit 37.5 VOL% (42.0-52.0); Hemoglobin 13.3 GM/DL (14.0-18.0); Immature Granulocytes % 0.6 %; Immature Granulocytes Absolute 0.02 #; Lymphocytes # 0.6 10*3/uL (1.4-4.0); Lymphocytes % 19.7 % (21.2-54.2); Mean Corpuscular HGB Conc 35.5 GM/DL (32-36); Mean Corpuscular Volume 85.2 FL (87-102); Monocytes # 0.5 10*3/uL (0.11-0.8); Monocytes % 14.9 % (1.7-12.7); Neutrophils % 63.2 % (38.7-73.9); Platelet Count 100 T/CUMM (130-400); Red Cell Distribution Width 12.9 % (9.3-17.3); White Blood Count 3.1 T/CUMM (4-12)
[2022-07-25 06:01] LABS: Calcium 8.5 MG/DL (8.5-10.1); Osmolality,Calculated 266.1 MOS/KG (273-304); Potassium 3.9 MMOL/L (3.5-5.1)
[2022-07-25] MEDS: LOSARTAN 50 MG TABLET PO SCH (08:34)
[2022-07-25] MEDS: MULTIVITAMIN (CENTRUM) TABLET PO SCH (08:34)
[2022-07-25] MEDS: METOCLOPRAMIDE 5 MG TABLET PO SCH ×3 (08:34→18:00)
[2022-07-25] MEDS: TAMSULOSIN 0.4 MG CAPSULE PO SCH (08:34)
[2022-07-25] MEDS: carBAMazepine 200 MG TABLET PO SCH ×2 (08:34→20:14)
[2022-07-25] MEDS: amLODIPine 10 MG TABLET PO SCH (08:35)
[2022-07-25] MEDS: oxyCODONE/ACETAMINOPHEN 5-325 MG TABLET PO SCH ×3 (08:35→20:15)
[2022-07-25] MEDS: clonazePAM 0.5 MG TABLET PO SCH ×2 (08:35→20:14)
[2022-07-25] MEDS: PANTOPRAZOLE 40 MG TABLET PO SCH (08:35)
[2022-07-25] MEDS: SODIUM CHLORIDE 1 GM TABLET PO SCH (08:35)
[2022-07-25] MEDS: FERROUS SULFATE 325 MG TABLET PO SCH ×2 (08:35→18:00)
[2022-07-25] MEDS: MAGNESIUM CHLORIDE 64 MG TABLET PO SCH (08:35)
[2022-07-25] MEDS: busPIRone 15 MG TABLET PO SCH ×3 (08:35→20:14)
[2022-07-25] MEDS: DOCUSATE SODIUM 100 MG CAPSULE PO SCH ×2 (08:35→20:15)
[2022-07-25] MEDS: ARIPiprazole 5 MG TABLET PO SCH (08:35)
[2022-07-25] MEDS: LACTULOSE 20 GM/30 ML UDCUP PO SCH (08:36)
[2022-07-25] MEDS: OXYBUTYNIN XL 5 MG TABLET PO SCH (08:36)
[2022-07-25] MEDS: SKIN HEALING OINT (AQUAPHOR) 50 GM TUBE TOP SCH (10:38)
[2022-07-25] MEDS: ACETAMINOPHEN 325 MG TABLET PO PRN (18:41)
[2022-07-25] MEDS: SENNA 8.6 MG TABLET PO SCH (20:14)
[2022-07-25] MEDS: ENOXAPARIN 30 MG/0.3 ML SYRINGE SUBCUT SCH (20:15)
[2022-07-25] MEDS: MELATONIN 3 MG TABLET PO SCH (20:15)
[2022-07-26] MEDS: SODIUM CHLORIDE 0.9% 1,000 ML IV SCH ×2 (03:56→13:12)
[2022-07-26] MEDS: ACETAMINOPHEN 325 MG TABLET PO PRN (04:01)
[2022-07-26 08:47] LABS: Calcium 7.9 MG/DL (8.5-10.1); Osmolality,Calculated 273.7 MOS/KG (273-304); Potassium 3.9 MMOL/L (3.5-5.1)
[2022-07-26] MEDS: MULTIVITAMIN (CENTRUM) TABLET PO SCH (09:15)
[2022-07-26] MEDS: oxyCODONE/ACETAMINOPHEN 5-325 MG TABLET PO SCH ×2 (09:15→14:09)
[2022-07-26] MEDS: TAMSULOSIN 0.4 MG CAPSULE PO SCH (09:15)
[2022-07-26] MEDS: FERROUS SULFATE 325 MG TABLET PO SCH ×2 (09:15→16:39)
[2022-07-26] MEDS: LACTULOSE 20 GM/30 ML UDCUP PO SCH (09:15)
[2022-07-26] MEDS: amLODIPine 10 MG TABLET PO SCH (09:15)
[2022-07-26] MEDS: busPIRone 15 MG TABLET PO SCH ×2 (09:15→14:09)
[2022-07-26] MEDS: METOCLOPRAMIDE 5 MG TABLET PO SCH ×3 (09:15→16:39)
[2022-07-26] MEDS: LOSARTAN 50 MG TABLET PO SCH (09:15)
[2022-07-26] MEDS: OXYBUTYNIN XL 5 MG TABLET PO SCH (09:15)
[2022-07-26] MEDS: DOCUSATE SODIUM 100 MG CAPSULE PO SCH (09:15)
[2022-07-26] MEDS: clonazePAM 0.5 MG TABLET PO SCH (09:15)
[2022-07-26] MEDS: carBAMazepine 200 MG TABLET PO SCH (09:15)
[2022-07-26] MEDS: ARIPiprazole 5 MG TABLET PO SCH (09:15)
[2022-07-26] MEDS: PANTOPRAZOLE 40 MG TABLET PO SCH (09:15)
[2022-07-26] MEDS: SKIN HEALING OINT (AQUAPHOR) 50 GM TUBE TOP SCH (10:00)
[2022-07-26 15:54] VITALS: BP 145/94
== END 2022-07-26 16:32 | DRG 641 ==
LOC: N.ED 05:26 → N.EDINP 08:13 → N.3E 08:34
PROVIDERS: ADMIT Family Medicine; ATTEND Family Medicine